=== PATIENT | male | born 1960 | race Two or more races ===

== ENCOUNTER 2024-12-16 19:37 | Inpatient (IN) | payer MEDICAID, SELFPAY ==
[2024-12-16 19:41] VITALS: BP 114/75; PULSE 104; RESP 20; TEMP 36.8; O2SAT 97
--- NOTE | 2024-12-16 20:18 | XR_ITS ---
Examination: AP chest single view Technique one AP portable semiupright chest single view Date and time: December 16, 2024, 2023 hours INDICATIONS: Shortness of breath chest pain today FINDINGS: Atelectasis versus early pneumonia right base Minor prominence left ventricle Left lung clear No pulmonary edema The osseous structures are intact IMPRESSION: Atelectasis versus early pneumonia right base, clinical correlation is advised
--- NOTE | 2024-12-16 20:24 | EDNOTE_ITS ---
ED General RME/HPI General Chief complaint: Abdominal Pain Stated complaint: ABD PAIN Time Seen by Provider: 12/16/24 20:12 Arrival date/time: 12/16/24 19:37 RME / HPI RME / HPI narrative: 63-year-old male patient with significant history of liver cirrhosis, stopped drinking alcohol a month ago, came in with EMS for evaluation regarding abdominal pain, discoloration pain and swelling to the left lower extremity. Onset of symptoms earlier this morning. Severity of symptoms moderate. Patient also noted rectal bleeding. Denies any other complaints. Patient is not taking any blood thinner. Related Data Allergies Allergy/AdvReac Type Severity Reaction Status Date / Time No Known Drug Allergies Allergy Verified 12/16/24 21:17 Review of Systems Review of Systems Narrative Review of Systems: Review of system reviewed and within normal limits except mentioned in HPI ED Exam Narrative Physical exam: VITAL SIGNS: Reviewed. GENERAL APPEARANCE: Alert and interactive, follows commands, no acute distress, HEAD AND FACE: Non-traumatic. ENT: PERRL, icteric conjunctiva, eyelid no trauma, Mucous membrane moist. NECK: Supple, nontender, no nuchal rigidity. CHEST: No tenderness, no crepitus, no paradoxical movement, no retractions. LUNGS: Clear, well ventilated, symmetric, no rales, no wheezing, no ronchi, no stridor, good breath sounds bilaterally. HEART: Regular rate, regular rhythm, no murmur, no gallops. ABDOMEN: Soft, positive bowel sounds, distended, no guarding, diffuse tenderness no rebound, no masses, RECTAL: Rectal exam showed melena. Tested positive for occult blood strongly. GENITAL: Deferred. NEUROLOGICAL: Gross motor function intact sensory function intact, Appropriate for age. MUSCULOSKELETAL: low back nontender, full range of motion. EXTREMITIES: +3 swelling bilateral lower extremity, +discoloration, bruising, tenderness, noted on the left lower entire extremity. Limited range of motion. Pulses barely palpable SKIN: Color jaundiced, dry, no rash, no lacerations, no abrasions, no contusions. LYMPHATICS: Deferred. Course Quality Measures none Orders Category Date Time Status CT Screening NOW Care 12/16/24 21:07 Active Body And Fender Mechanic Apprentice STAT Care 12/16/24 20:16 Active Central Line Insertion Set Up NOW Care 12/16/24 21:02 Active Continuous Pulse Oximetry STAT Care 12/16/24 20:16 Active EKG (ED ONLY) *Do not use* NOW Care 12/16/24 20:16 Completed In and Out Catheter X1PRN Care 12/16/24 20:16 Active Insert IV NOW Care 12/16/24 20:16 Active NPO STAT Care 12/16/24 20:16 Active Occult Blood,Stool (Nursing) ONCE Care 12/16/24 20:36 Active Strict Intake and Output Routine Care 12/16/24 20:16 Ordered Urinary Catheter QS Care 12/16/24 21:[address] LE LT wo con Stat Exams 12/16/24 21:[address] angio chest abdomen pelvis Stat Exams 12/16/24 21:06 Ordered EKG (ED Only) Stat Exams 12/16/24 20:16 Ordered XR chest 1V Stat Exams 12/16/24 20:18 Completed Arterial Blood Gas Stat Lab 12/16/24 21:03 Ordered B-Type Natriuretic Peptide Stat Lab 12/16/24 20:35 Completed Blood Culture (Lab) Stat Lab 12/16/24 20:49 Received CBC Stat Lab 12/16/24 20:35 Completed Comprehensive Metabolic Panel Stat Lab 12/16/24 20:35 Results DIC Panel Stat Lab 12/16/24 20:35 Completed LDH (Lactate Dehydrogenase) Stat Lab 12/16/24 20:35 Results Lactate (Lactic Acid) Q2H Lab 12/16/24 23:00 Ordered Lactate (Lactic Acid) Q2H Lab 12/17/24 01:00 Ordered Lactate (Lactic Acid) Q2H Lab 12/17/24 03:00 Ordered Lactate (Lactic Acid) Stat Lab 12/16/24 20:16 Results Lipase Stat Lab 12/16/24 20:35 Results Magnesium Stat Lab 12/16/24 20:35 Results PLATELETS [Pheresis Platelets] Stat Lab 12/16/24 20:48 Results Partial Thromboplastin Time Stat Lab 12/16/24 20:35 Completed Phosphorous Stat Lab 12/16/24 20:35 Results Procalcitonin Stat Lab 12/16/24 20:35 Results Prothrombin Time with INR Stat Lab 12/16/24 20:35 Completed Troponin I Stat Lab 12/16/24 20:35 Results Type and Screen Stat Lab 12/16/24 20:48 Results Urinalysis Stat Lab 12/16/24 20:16 Ordered Urine Culture Stat Lab 12/16/24 20:16 Ordered VBG [Venous Blood Gas] Stat Lab 12/16/24 20:36 Completed prbc [Red Blood Cells] Stat Lab 12/16/24 20:48 Results Octreotide Acet Inj [SandoSTATIN Inj] Med 12/16/24 20:34 Discontinued 50 mcg IV X1 ONE Pantoprazole Inj [Protonix Inj] Med 12/16/24 20:34 Discontinued 80 mg IVP X1 ONE Piper/Tazo 3.375 gm Premix [Zosyn] Med 12/16/24 20:35 Discontinued 3.375 gm in 50 ml IV X1 Ringers Lactated 1000 ml [Lactated Ringers] 1,000 ml Med 12/16/24 20:47 Discontinued IV 999 mls/hr Sodium Bicarb 8.4% SYR Med 12/16/24 22:22 Once 50 ml IV X1 ONE Sodium Bicarb 8.4% SYR Med 12/16/24 22:22 Once 50 ml IV X1 ONE Sodium Chloride 0.9% [Ns] 100 ml Med 12/16/24 20:35 Active Octreotide Acet Inj [SandoSTATIN Inj] 1,000 mcg IV 50 mcg/hr fentaNYL INJ [Sublimaze Inj] Med 12/16/24 21:10 Discontinued 50 mcg IVP X1 ONE BiPAP / CPAP NOW RT 12/16/24 21:10 Active Oxygen Delivery NOW RT 12/16/24 20:16 Active Vital Signs Vital signs: Vital Signs Temperature 98.2 F 12/16/24 19:41 Pulse Rate 104 H 12/16/24 19:41 Respiratory Rate 20 12/16/24 19:41 Blood Pressure 114/75 12/16/24 19:41 Pulse Oximetry (%) 97 12/16/24 19:41 Oxygen Delivery Method Room Air 12/16/24 19:41 Discharge Plan Plan Patient Disposition: Admit Acute Care w/in Hospital Discharge Disposition comment: Stable Problem List Clinical Impression: DIC (disseminated intravascular coagulation) Patient/Caregiver Discharge Instructions Discharge Activity: activity as tolerated Education Materials: Reducing Your Health Risks ... Additional Instructions: Thank you for the opportunity for serving you today. You are stable for discharged . Print Language: Georgian Stand Alone Forms: Lou Award Info., Patient Portal Info Letter MDM Narrative MDM hospital course: Care transferred to Dr Mccullough at 10pm for final disposition Medication Administration(s) Medication Administration History Octreotide Acetate 1,000 mcg/ (Sodium Chloride) 102 mls @ 5.1 mls/hr IV .Q20H ONE; Protocol Stop: 12/17/24 16:34 Last Admin: 12/16/24 22:01 Dose: 50 mcg/hr, 5.1 mls/hr Documented By: CG Sodium Bicarbonate (Sodium Bicarb Inj 8.4% Syr 50 Ml Syringe) 50 ml IV X1 ONE Stop: 12/16/24 22:23 Sodium Bicarbonate (Sodium Bicarb Inj 8.4% Syr 50 Ml Syringe) 50 ml IV X1 ONE Stop: 12/16/24 22:23 Discontinued Medications Fentanyl Citrate (Fentanyl Cit Inj 50 Mcg/Ml Amp 2ml) 50 mcg IVP X1 ONE Stop: 12/16/24 21:11 Last Admin: 12/16/24 21:45 Dose: 50 mcg Documented By: CG Piperacillin/Tazobactam/Dextrose (Zosyn) 3.375 gm in 50 mls @ 100 mls/hr IV X1 ONE Stop: 12/16/24 21:04 Last Admin: 12/16/24 21:56 Dose: 100 mls/hr Documented By: DIPIKA Lactated Ringer's (Lactated Ringers) 1,000 mls @ 999 mls/hr IV .Q1H1M ONE Stop: 12/16/24 21:47 Last Admin: 12/16/24 21:33 Dose: 999 mls/hr Documented By: DIPIKA Octreotide Acetate (Octreotide Acet Inj 50 Mcg/Ml Vial) 50 mcg IV X1 ONE Stop: 12/16/24 20:35 Last Admin: 12/16/24 21:53 Dose: 50 mcg Documented By: DIPIKA Pantoprazole Sodium (Pantoprazole Inj 40 Mg Vial) 80 mg IVP X1 ONE Stop: 12/16/24 20:35 Last Admin: 12/16/24 21:48 Dose: 80 mg Documented By: DIPIKA
[2024-12-16 20:37] VITALS: BP 116/68; PULSE 111; RESP 23; TEMP 36.6; O2SAT 97
[2024-12-16 20:56] VITALS: PULSE 114; RESP 23; O2SAT 99; BMI 30.1
[2024-12-16 20:57] LABS: Lactate (Lactic Acid) 10.9 mMol/L (0.4-2.0)
[2024-12-16 21:02] LABS: Basophils # (Auto) 0.0 Thou/mm3 (0.0-0.2); Basophils % (Auto) 0 % (0-2.5); Eosinophils # (Auto) 0.1 Thou/mm3 (0.0-0.5); Eosinophils % (Auto) 1 % (0-10); Hematocrit 30.6 % (41.0-53.0); Hemoglobin 10.7 g/dL (13.5-16.0); Immature Granulocytes Auto 0.01 Thou/mm3 (0.00-0.00); Lymphocytes # (Auto) 0.5 Thou/mm3 (1.0-4.8); Lymphocytes % (Auto) 10 % (10-50); Mean Corpuscular HGB Conc 35.0 g/dl (31.0-37.0); Mean Corpuscular Hemoglobin 38.2 pg (25.0-35.0); Mean Corpuscular Volume 109 fL (80-100); Monocytes # (Auto) 0.1 Thou/mm3 (0.0-0.8); Monocytes % (Auto) 2 % (0-12); Neutrophils # (Auto) 4.2 Thou/mm3 (1.8-7.7); Neutrophils % (Auto) 87 % (37-80); Nucleated Red Blood Cell # 0.02 Thou/mm3 (0.00-0.00); Nucleated Red Blood Cell % 0 /100 WBC (0); RDW Standard Deviation 60.7 fL (35.1-43.9); Red Blood Count 2.80 Miln/mm3 (4.50-5.90); White Blood Count 4.8 Thou/mm3 (3.8-10.6)
--- NOTE | 2024-12-16 21:06 | XR_ITS ---
Examination: CTA chest, with intravenous contrast. CTA abdomen, with intravenous contrast. CTA pelvis, with intravenous contrast. 2-D sagittal and coronal reconstructions. 3-D reconstructions. Date and time of exam: December 17, 2024, 0114 hours Sepsis alert with chest and abdominal pain today CTDI vol (mgy) 26.68 DLP (MGycm) 1407 Technique: Multiple CTA images, 2.0 mm slice thickness, obtained chest, abdomen, pelvis, with the high-resolution 64 slice scanner. 60 cc Isovue 300 is administered intravenously. Sagittal and coronal 2-D reconstructions are obtained. 3-D reconstructions, angiographic images are obtained. 3-D postprocessing, including vascular maximum intensity projections. Low dose protocols were performed. One or more of the following dose reduction techniques were used; automated exposure control, adjustment of the mA and/or KV according to patient size, use of iterative reconstruction technique. Findings: Tracheal tube tip 2.6 cm above Delmy No thoracic aortic aneurysmal dilatation or dissection. No pulmonary artery filling defects Mild to moderate enlargement left atrium and left ventricle Prominent vascular congestion Bibasilar pneumonia significant right base Cirrhosis, liver and nodular in contour with prominent ascites Gallstones, gallbladder wall appears thickened No pancreatic or adrenal mass Anasarca Aorta normal size No bowel obstruction The appendix is not diagnostically visualized Urinary Merlos catheter present in the bladder, air density in the bladder Fluid in the inguinal canals/inguinal hernias Acute fracture T11 vertebral body, depression superior endplate 20% Adequate alignment of this vertebral body IMPRESSION: Mild heart failure A bibasilar pneumonia. Cirrhosis Prominent ascites Anasarca. Recommend hepatobiliary sonography follow-up Acute fracture T11 vertebral body as above
--- NOTE | 2024-12-16 21:06 | XR_ITS ---
Examination: CT left lower extremity, without contrast. 2-D sagittal reconstructions. 2-D coronal reconstructions. 3-D reconstructions. Date and time of exam:December 17, 2024 0054 hours INDICATIONS: Redness swelling and ecchymoses in the left lower extremity today CTDI: vol (mGy):16.09 DLP: (mGycm):1844 Technique: Multiple 1.25 mm axial sections of the left lower extremity without intravenous contrast. have been obtained. 2-D sagittal and coronal reconstructions have been obtained. 3-D reconstructions have been obtained. Low dose protocols were performed. One or more of the following dose reduction techniques were used; automated exposure control, adjustment of the mA and/or KV according to patient size, use of iterative reconstruction technique. Findings: Significant ascites Urinary Merlos catheter with air in the urinary bladder, fluid in bilateral inguinal hernias Prominent edema in the subcutaneous tissues surrounding the entire lower extremity. AV calcification involving the superficial femoral popliteal and trifurcation vessel arteries Negative for osteomyelitis No soft tissue abscess IMPRESSION: Prominent subcutaneous edema/anasarca Negative for osteomyelitis No soft tissue abscess Consider venous Doppler sonography follow-up
[2024-12-16 21:07] LABS: Platelet Count 61 Thou/mm3 (140-440)
--- NOTE | 2024-12-16 21:10 | EDNOTE_ITS ---
Emergency Room Addendum <Poonam Adams - Last Filed: 12/17/24 05:23> Addendum Narrative: 2100: Care assumed from Kitty Espino NP. Past medical, surgical, social and family history reviewed. Vitals and home medications reviewed. Results and treatment plan discussed. I will assume the care of the patient at this time and will follow the patient. Please refer to the emergency department record for history and examination from initial visit. The following addendum documentation note is intended to reflect any pending information, findings, or radiology results not included in the patient?s initial chart. 2099: Sepsis alert initiated. Orders made at this time are congruent with ED Adult Sepsis Order List. Re-evaluation is to be completed. 2109: BiPAP ordered. RT notified. 2132: LR IVF started. WBC normal, Hgb 10.7, Hct 30.6, PT 31.4, INR 3.1, PTT 65.6, Fibrinogen 71, D-Dimer 2980, Sodium 123, CO2 11.3, Creatinine 1.5, Glucose 59, Lactic Acid 10.9, Total Bilirubin 9.2, Troponin normal, BNP 277, Procalcitonin 17.29. VBG shows pH 7.27, pCO2 28. 2345: Sepsis reassessment performed consisting of lab review, vitals, physical exam including auscultation of heart, lungs, and visual evaluation of capillary refills, mucosal membranes and extremities. Central line placed by the resident physician, Dr. Torres, PGY-2, under my supervision. See procedure note. 0033: Patient intubated, see procedure note below. Post intubation CXR shows ET tube in good placement, right middle and upper lobe pneumonia, no pleural effusion, according to my interpretation. 0248: Discussed case with Dr. Mcclain, ICU resident from Hospitalist service regarding admission. Discussed patients ED course, exam findings, labs, and radiology results. The Hospitalist agrees to accept the patient for admission. Request FFP's. 0427: Discussed case with Dr. Hawthorne from general surgery regarding consultation. Discussed patients ED course, exam findings, labs, and radiology results. Agrees to consult. Diagnoses: upper GI bleed, thrombocytopenia, sepsis, hypercoaguable, DIC, hyponatremia, acute respiratory distress, right lower lobe pneumonia RADIOLOGY RESULTS: [facility] Report Signed Patient: BERE BLACKWELL Xiaoying. Record#: [id number] Birthdate: 1960 Age/Sex: 64 / M Location: [facility] Attending Dr: Ordering Physician: Kitty Espino Date of Service: 12/16/24 Procedure(s): XR chest 1V Accession Number(s): [id number] cc: Kitty Espino; Denny Grewal MD~ Examination: AP chest single view Technique one AP portable semiupright chest single view Date and time: December 16, 20242023 hours INDICATIONS: Shortness of breath chest pain today FINDINGS: Atelectasis versus early pneumonia right base Minor prominence left ventricle Left lung clear No pulmonary edema The osseous structures are intact IMPRESSION: Atelectasis versus early pneumonia right base, clinical correlation is advised Dictated By: Denny Grewal MD Signed By: <Electronically signed by Denny Grewal MD in OV> 12/16/242105 [facility] Preliminary Report Draft Patient: BERE BLACKWELL Xiaoying. Record#: [id number] Birthdate: 1960 Age/Sex: 64 / M Location: [facility] Attending Dr: Ordering Physician: Date of Service: Procedure(s): Accession Number(s): cc: ~ CT scan of the left lower extremity (hip, femur, knee, tibia and fibula, ankle, and foot) without intravenous contrast (axial sections with sagittal and coronal reformats) December 17, 2024 0054 hours Clinical History: Swelling ecchymosis Comparison: None. Findings: The visualized bones are unremarkable. No fracture or dislocation is noted. No joint effusion is noted. The visualized muscles are unremarkable with maintained intermuscular fat planes. Diffuse subcutaneous fat edema. No collections. Vascular calcifications. Merlos catheter noted in place. Air within the urinary bladder. No hematomas. Impression: 1. No acute fractures. 2. Diffuse subcutaneous fat edema, consider anasarca and cellulitis in the differential diagnosis. 3. Air within the urinary bladder, possibly postprocedural or possibly due to cystitis. Please, correlate clinically. Report Electronically Signed By: Dl Clemente 12/17/2024 2:13:06 AM [facility] Preliminary Report Draft Patient: BERE BLACKWELL. Record#: [id number] Birthdate: 1960 Age/Sex: 64 / M Location: [facility] Attending Dr: Ordering Physician: Date of Service: Procedure(s): Accession Number(s): cc: ~ CT angiogram of the chest, abdomen and pelvis with intravenous contrast (axial sections with sagittal and coronal reformats) December 17, 2024 0114 hours Clinical History: Sepsis Protocol Comparison: None. Findings: The thoracic aorta demonstrates mild atheromatous calcification without evidence of dissection or aneurysm. The origins of the right brachiocephalic, left common carotid and left subclavian arteries are patent. The abdominal aorta demonstrates mild atheromatous calcification without evidence of dissection or aneurysm. The celiac, superior mesenteric, inferior mesenteric and bilateral renal arteries are patent to the extent visualized. The common iliac, external iliac and internal iliac arteries are patent bilaterally. There is no filling defect within the pulmonary artery divisions to suggest pulmonary thromboembolism. No evidence of mediastinal mass or lymphadenopathy. There is no pericardial effusion. Consolidations in the bilateral lower lobes. No pneumothorax. Small bilateral pleural effusions. Bilateral upper lobe consolidations. Irregular liver margins. Moderate ascites. The spleen, pancreas, adrenals and kidneys are unremarkable. Gallbladder wall thickening. Gallstones. No biliary duct dilation No evidence of bowel obstruction. No evidence of appendicitis. There is no significant mesenteric or retroperitoneal adenopathy. The urinary bladder is unremarkable. There is no free air or abscess. Acute compression fracture of the superior endplate of T11 without evidence of bone fragment retropulsion, about 10% decrease in vertebral height. Esophagogastric tube in place. Endotracheal tube in place. Dilated left atrium. Gastroesophageal varices. The portal vein is patent. Diverticulosis of the colon. Thickening of the sigmoid colon wall. Impression: 1. No evidence of aortic dissection or aneurysm. 2. No evidence of pulmonary thromboembolism. 3. Acute compression fracture of the superior endplate of T11 without evidence of bone fragment retropulsion, about 10% decrease in vertebral height. Correlation with CT of the thoracolumbar spine is recommended. 4. Dilated left atrium. 5. Multifocal pneumonia. 6. Small bilateral pleural effusions. 7. Cirrhosis associated with ascites. 8. Gallstones and gallbladder wall thickening, possibly due to chronic or possibly due to diuresis chronic liver disease. 9. Possible sigmoiditis. Discussion Details: Results verbally communicated to : Dr Mccullough at 02:32 AM 12/17/2024 Report Electronically Signed By: Dl Clemente 12/17/2024 2:40:17 AM PROCEDURES: Intubation Time out performed: Yes sedative: Etomidate Mg Given: 20 paralytic: Succinylcholine Mg Given: 150 Laryngoscope: fiber optic video scope Assist Device Used: fiber optic device ET Tube Size: 7.5 ET Tube Uncuffed: No Tube Secured Depth (cm): 24 Tube Secured Location: teeth Tube Placement Confirmation: visualized tube passing through cords, equal breath sounds bilaterally, no breath sounds over epigastrium and confirmation by capnometry Intubation Complications: difficult intubation Central Line Placement Right Femoral: Time Out Performed: Yes Patient Placed on Monitor/Pulse Ox: Yes (patient intubated) Hand Hygiene: soap & water Max Sterile Barrier Techniques used: cap, mask, sterile gown, sterile gloves and sterile full body drape Central Line Prep: Povidone-Iodine, sterile drapes applied Ultrasound Used for Placement: Yes Sterile Technique if Ultrasound used, including sterile gel: yes Central Line Lumen Inserted: triple Post Procedure: sutured in place, good blood return, all ports aspirated, flushed, capped and sterile dressing applied Patient Tolerated Procedure: well and no complications Critical Care Time: 80 minutes The high probability of sudden, clinically significant deterioration in the patient?s condition required the highest level of my preparedness to intervene urgently. The services I provided to this patient were to treat and/or prevent clinically significant deterioration. Services included the following: chart data review, reviewing nursing notes and/or old charts, documentation time, product support consultant collaboration regarding findings and treatment options, medication orders and management, direct patient care, vital sign assessments and ordering, interpreting and reviewing diagnostic studies and lab tests. Aggregate critical care time includes only time during which I was engaged in work directly related to the patient?s care, as described above, whether at bedside or elsewhere in the Emergency Department. It did not include time spent performing other reported procedures or the services of residents, students, nurses or physician assistants. <Liz Mccullough MD - Last Filed: 12/17/24 02:58> Addendum Narrative: 2099: Care assumed from Kitty Espino NP. Past medical, surgical, social and family history reviewed. Vitals and home medications reviewed. Results and treatment plan discussed. I will assume the care of the patient at this time and will follow the patient. Please refer to the emergency department record for history and examination from initial visit. The following addendum documentation note is intended to reflect any pending information, findings, or radiology results not included in the patient?s initial chart. 2099: Sepsis alert initiated. Orders made at this time are congruent with ED Adult Sepsis Order List. Re-evaluation is to be completed. 2109: BiPAP ordered. RT notified. 2132: LR IVF started. WBC normal, Hgb 10.7, Hct 30.6, PT 31.4, INR 3.1, PTT 65.6, Fibrinogen 71, D- Dimer 2980, Sodium 123, CO2 11.3, Creatinine 1.5, Glucose 59, Lactic Acid 10.9, Total Bilirubin 9.2, Troponin normal, BNP 277, Procalcitonin 17.29. VBG shows pH 7.27, pCO2 28. 2345: Sepsis reassessment performed consisting of lab review, vitals, physical exam including auscultation of heart, lungs, and visual evaluation of capillary refills, mucosal membranes and extremities. Central line placed by the resident physician, Dr. Torres, PGY-2, under my supervision. See procedure note. 0033: Patient intubated, see procedure note below. Post intubation CXR shows ET tube in good placement, right middle and upper lobe pneumonia, no pleural effusion, according to my interpretation. 0248: Discussed case with [the resident physician, attending ] from Hospitalist service regarding admission. Discussed patients ED course, exam findings, labs, and radiology results. The Hospitalist [agrees] to accept the patient for admission. Request FFP's. Diagnoses: upper GI bleed, thrombocytopenia, sepsis, hypercoaguable, DIC, hyponatremia, acute respiratory distress, right lower lobe pneumonia RADIOLOGY RESULTS: [facility] Report Signed Patient: BERE BLACKWELL. Record#: [id number] Birthdate: 1960 Age/Sex: 64 / M Location: [facility] Attending Dr: Ordering Physician: Kitty Espino Date of Service: 12/16/24 Procedure(s): XR chest 1V Accession Number(s): [id number] cc: Kitty Espino; Denny Grewal MD~ Examination: AP chest single view Technique one AP portable semiupright chest single view Date and time: December 16, 20242023 hours INDICATIONS: Shortness of breath chest pain today FINDINGS: Atelectasis versus early pneumonia right base Minor prominence left ventricle Left lung clear No pulmonary edema The osseous structures are intact IMPRESSION: Atelectasis versus early pneumonia right base, clinical correlation is advised Dictated By: Denny Grewal MD Signed By: <Electronically signed by Denny Grewal MD in OV> 12/16/242105 [facility] Preliminary Report Draft Patient: BERE BLACKWELL. Record#: [id number] Birthdate: 1960 Age/Sex: 64 / M Location: [facility] Attending Dr: Ordering Physician: Date of Service: Procedure(s): Accession Number(s): cc: ~ CT scan of the left lower extremity (hip, femur, knee, tibia and fibula, ankle, and foot) without intravenous contrast (axial sections with sagittal and coronal reformats) December 17, 2024 0054 hours Clinical History: Swelling ecchymosis Comparison: None. Findings: The visualized bones are unremarkable. No fracture or dislocation is noted. No joint effusion is noted. The visualized muscles are unremarkable with maintained intermuscular fat planes. Diffuse subcutaneous fat edema. No collections. Vascular calcifications. Merlos catheter noted in place. Air within the urinary bladder. No hematomas. Impression: 1. No acute fractures. 2. Diffuse subcutaneous fat edema, consider anasarca and cellulitis in the differential diagnosis. 3. Air within the urinary bladder, possibly postprocedural or possibly due to cystitis. Please, correlate clinically. Report Electronically Signed By: Dl Clemente 12/17/2024 2:13:06 AM [facility] Preliminary Report Draft Patient: BERE BLACKWELL Record#: [id number] Birthdate: 1960 Age/Sex: 64 / M Location: [facility] Attending Dr: Ordering Physician: Date of Service: Procedure(s): Accession Number(s): cc: ~ CT angiogram of the chest, abdomen and pelvis with intravenous contrast (axial sections with sagittal and coronal reformats) December 17, 2024 0114 hours Clinical History: Sepsis Protocol Comparison: None. Findings: The thoracic aorta demonstrates mild atheromatous calcification without evidence of dissection or aneurysm. The origins of the right brachiocephalic, left common carotid and left subclavian arteries are patent. The abdominal aorta demonstrates mild atheromatous calcification without evide nce of dissection or aneurysm. The celiac, superior mesenteric, inferior mesenteric and bilateral renal arteries are patent to the extent visualized. The common iliac, external iliac and internal iliac arteries are patent bilaterally. There is no filling defect within the pulmonary artery divisions to suggest pulmonary thromboembolism. No evidence of mediastinal mass or lymphadenopathy. There is no pericardial effusion. Consolidations in the bilateral lower lobes. No pneumothorax. Small bilateral pleural effusions. Bilateral upper lobe consolidations. Irregular liver margins. Moderate ascites. The spleen, pancreas, adrenals and kidneys are unremarkable. Gallbladder wall thickening. Gallstones. No biliary duct dilation No evidence of bowel obstruction. No evidence of appendicitis. There is no significant mesenteric or retroperitoneal adenopathy. The urinary bladder is unremarkable. There is no free air or abscess. Acute compression fracture of the superior endplate of T11 without evidence of bone fragment retropulsion, about 10% decrease in vertebral height. Esophagogastric tube in place. Endotracheal tube in place. Dilated left atrium. Gastroesophageal varices. The portal vein is patent. Diverticulosis of the colon. Thickening of the sigmoid colon wall. Impression: 1. No evidence of aortic dissection or aneurysm. 2. No evidence of pulmonary thromboembolism. 3. Acute compression fracture of the superior endplate of T11 without evidence of bone fragment retropulsion, about 10% decrease in vertebral height. Correlation with CT of the thoracolumbar spine is recommended. 4. Dilated left atrium. 5. Multifocal pneumonia. 6. Small bilateral pleural effusions. 7. Cirrhosis associated with ascites. 8. Gallstones and gallbladder wall thickening, possibly due to chronic or poss ibly due to diuresis chronic liver disease. 9. Possible sigmoiditis. Discussion Details: Results verbally communicated to : Dr Mccullough at 02:32 AM 12/17/2024 Report Electronically Signed By: Dl Clemente 12/17/2024 2:40:17 AM PROCEDURES: Intubation Time out performed: Yes sedative: Etomidate Mg Given: 20 paralytic: Succinylcholine Mg Given: 150 Laryngoscope: fiber optic video scope Assist Device Used: fiber optic device ET Tube Size: 7.5 ET Tube Uncuffed: No Tube Secured Depth (cm): 24 Tube Secured Location: teeth Tube Placement Confirmation: visualized tube passing through cords, equal breath sounds bilaterally, no breath sounds over epigastrium and confirmation by capnometry Intubation Complications: difficult intubation
[2024-12-16 21:12] LABS: D-Dimer 2980 ng/mL (<600)
[2024-12-16 21:21] VITALS: PULSE 114; RESP 12; RESP 25; O2SAT 99
[2024-12-16 21:24] LABS: Base Excess, Venous -13 (-3-3); O2 Saturation, Venous 54 % (96-97); PCO2, Venous 28 mmHg (36-56); PO2, Venous 36 mmHg (15-58); pH, Venous 7.27 (7.33-7.66)
[2024-12-16] MEDS: RINGERS LACTATED 1000 ML 1,000 ML 999 ML IV (21:33)
[2024-12-16 21:34] LABS: INR 3.1 (0.9-1.3); Partial Thromboplastin Time 65.6 Seconds (22.0-36.0)
[2024-12-16] MEDS: fentaNYL CIT INJ 50 mCg/ML AMP 2ML IVP (21:45)
[2024-12-16 21:50] LABS: Fibrinogen 71 mg/dL (175-375)
[2024-12-16] MEDS: OCTREOTIDE ACET INJ 50 mCg/ML VIAL IV (21:53)
[2024-12-16 21:54] LABS: B-Type Natriuretic Peptide 277 pg/mL (0-100)
[2024-12-16 21:55] LABS: Prothrombin Time 31.4 Seconds (9.0-12.2)
[2024-12-16] MEDS: PIPER/TAZO 3.375 GM PREMIX 3.375 GM/50 ML BAG IV (21:56)
[2024-12-16] MEDS: OCTREOTIDE ACET INJ 1,000 MCG in SODIUM CHLORIDE 0.9% 100 ML 5.1 MCG IV (22:01)
[2024-12-16 22:02] LABS: Slide Review Platelets confirmed
[2024-12-16 22:13] LABS: Alanine Aminotransferase 60 U/L (10-49); Albumin, Serum 1.8 gm/dL (3.4-4.8); Albumin/Globulin Ratio 0.4 (1.2-2.2); Alkaline Phosphatase 115 U/L (46-116); Anion Gap 19 (7-16); Aspartate Amino Transferase 82 U/L (0-34); BUN/Creatinine Ratio 12 Ratio (12-20); Bilirubin,Total 9.2 mg/dL (0.3-1.2); Blood Urea Nitrogen 18 mg/dL (9-23); Calcium 8.2 mg/dL (8.3-10.6); Calcium (Corrected) 10.0 mg/dL (8.5-10.1); Chloride 93 mMol/L (98-107); Creatinine (Component) 1.5 mg/dL (0.6-1.3); Estimated Creatinine Clearance 54.2 mL/min (>60); Globulin 4.3 gm/dL (2.3-3.5); Glucose 59 mg/dL (74-106); Magnesium 1.6 mg/dL (1.6-2.6); Osmolality,Calculated 247 (275-295); Phosphorous 3.8 mg/dL (2.4-5.1); Potassium 3.8 mMol/L (3.4-5.1); Procalcitonin 17.29 ng/ml (0.0-0.49); Sodium 123 mMol/L (136-145); Total Protein 6.1 gm/dL (5.7-8.2); Troponin I < 0.020 ng/mL (0.0-0.045); eGFR 52 See Note
[2024-12-16 22:16] LABS: Carbon Dioxide 11.3 mMol/L (20.0-31.0)
[2024-12-16] MEDS: Sodium Bicarb Inj 8.4% SYR 50 ML SYRINGE IV ×2 (23:12→23:13)
[2024-12-16 23:13] VITALS: BP 116/69; PULSE 108
[2024-12-16] MEDS: BUMETANIDE INJ 0.25 MG/ML VIAL 4 ML 2 MG IVP (23:13)
[2024-12-16 23:41] LABS: LDH (Lactate Dehydrogenase) 303 U/L (120-246); Lipase 18 U/L (12-53)
[2024-12-16 23:54] LABS: Reflex Lactate? Y
--- NOTE | 2024-12-16 23:55 | XR_ITS ---
Examination: AP chest single view TECHNIQUE: AP portable semiupright chest single view Date and time: December 18, 2024 11:55 AM INDICATIONS: Post central line placement Findings while Left internal jugular central line tip is directed cephalad in the right internal jugular vein Mild prominence of ventricle Moderate vascular congestion No pneumothorax IMPRESSION: Left internal jugular central line tip is directed cephalad in the right internal jugular vein
[2024-12-17] VITALS (150 sets, daily range): BP systolic 66–300; BP diastolic 25–120; PULSE 86–126; RESP 12–120; TEMP 34.4–37.1; O2SAT 87–100; BMI 31.1
[2024-12-17] MEDS: TRANEXAMIC ACID INJ 1,000 MG/10 ML VIAL 1000 MG IV (00:20)
--- NOTE | 2024-12-17 00:33 | PC.NURSE ---
Pt intubated at this time with a 7.5 tube at 24 @teeth
[2024-12-17] MEDS: PROPOFOL 1,000 MG IVPB 1,000 MG/100 ML VIAL 2.697 MG IV (01:27)
[2024-12-17] MEDS: fentaNYL CIT INJ 50 mCg/ML AMP 2ML IVP (01:44)
--- NOTE | 2024-12-17 01:57 | XR_ITS ---
Examination: AP chest single view TECHNIQUE: AP portable semiupright chest single view Date and time: December 17, 2024, 0203 hours Comparison December 16, 2024 INDICATIONS: Hypoxic respiratory failure postintubation FINDINGS: Endotracheal tube tip 5 cm above Delmy Orogastric tube in the stomach although the stomach is air distended Interval diffuse left lung pneumonic consolidation Mild right base pneumonia Minor prominence left ventricle Prominent osteopenia IMPRESSION: Interval diffuse left lung pneumonia, consider aspiration pneumonia
[2024-12-17 02:05] LABS: Collection Type, Urine Clean Catch
[2024-12-17 02:09] LABS: Lactate (Lactic Acid) 12.7 mMol/L (0.4-2.0)
--- NOTE | 2024-12-17 02:13 | PRELIM_ITS ---
PRELIM ADDENDUM I have been asked to address few questions by the referring physician: As discussed in the report, air is within the urinary bladder, in emphysematous cystitis the air needs to be within the urinary bladder wall which is not in this case. As discussed in the report, there is diffuse subcutaneous fat edema, there is no air within the soft tissues (no soft tissue emphysema), there is no CT evidence of necrotizing fasciitis. Correlate clinically, since the absence of soft tissue emphysema by CT does not exclude 100% the possibility of necrotizing fasciitis. Report Electronically Signed By: Dl Clemente 12/17/2024 4:32:52 AM [EST] ORIGINAL PRELIM REPORT: CT scan of the left lower extremity (hip, femur, knee, tibia and fibula, ankle, and foot) without intravenous contrast (axial sections with sagittal and coronal reformats) December 17, 2024 0054 hours Clinical History: Swelling ecchymosis Comparison: None. Findings: The visualized bones are unremarkable. No fracture or dislocation is noted. No joint effusion is noted. The visualized muscles are unremarkable with maintained intermuscular fat planes. Diffuse subcutaneous fat edema. No collections. Vascular calcifications. Merlos catheter noted in place. Air within the urinary bladder. No hematomas. Impression: 1. No acute fractures. 2. Diffuse subcutaneous fat edema, consider anasarca and cellulitis in the differential diagnosis. 3. Air within the urinary bladder, possibly postprocedural or possibly due to cystitis. Please, correlate clinically. Report Electronically Signed By: Dl Clemente 12/17/2024 2:13:06 AM [EST]
[2024-12-17 02:22] LABS: Bilirubin,Urine 1+ (Negative); Blood,Urine 3+ (Negative); Color,Urine Drk-Yellow (Lt Yel-Yel); Glucose, Urine Negative (Negative); Ketones,Urine Negative (Negative); Leukocyte Esterase,Urine Negative (Negative); Nitrite,Urine Negative (Negative); PH,Urine 6.0 (5.0-7.0); Protein,Urine 1+ (Neg - Trace); RBC,Urine 190 /hpf (0-3); Renal Epithelial Cells,Urine 12 /hpf (0-5); Specific Gravity,Urine 1.023 (1.001-1.035); Squamous Epithelial Cell,Urine < 1 /hpf (0-5); Urobilinogen,Urine 3.0 mg/dL (0.0-1.0); WBC,Urine 6 /hpf (0-5)
[2024-12-17 02:25] LABS: Clarity,Urine Turbid (Clear/Hazy)
--- NOTE | 2024-12-17 02:40 | PRELIM_ITS ---
CT angiogram of the chest, abdomen and pelvis with intravenous contrast (axial sections with sagittal and coronal reformats) December 17, 2024 0114 hours Clinical History: Sepsis Protocol Comparison: None. Findings: The thoracic aorta demonstrates mild atheromatous calcification without evidence of dissection or aneurysm. The origins of the right brachiocephalic, left common carotid and left subclavian arteries are patent. The abdominal aorta demonstrates mild atheromatous calcification without evidence of dissection or aneurysm. The celiac, superior mesenteric, inferior mesenteric and bilateral renal arteries are patent to the extent visualized. The common iliac, external iliac and internal iliac arteries are patent bilaterally. There is no filling defect within the pulmonary artery divisions to suggest pulmonary thromboembolism. No evidence of mediastinal mass or lymphadenopathy. There is no pericardial effusion. Consolidations in the bilateral lower lobes. No pneumothorax. Small bilateral pleural effusions. Bilateral upper lobe consolidations. Irregular liver margins. Moderate ascites. The spleen, pancreas, adrenals and kidneys are unremarkable. Gallbladder wall thickening. Gallstones. No biliary duct dilation No evidence of bowel obstruction. No evidence of appendicitis. There is no significant mesenteric or retroperitoneal adenopathy. The urinary bladder is unremarkable. There is no free air or abscess. Acute compression fracture of the superior endplate of T11 without evidence of bone fragment retropulsion, about 10% decrease in vertebral height. Esophagogastric tube in place. Endotracheal tube in place. Dilated left atrium. Gastroesophageal varices. The portal vein is patent. Diverticulosis of the colon. Thickening of the sigmoid colon wall. Impression: 1. No evidence of aortic dissection or aneurysm. 2. No evidence of pulmonary thromboembolism. 3. Acute compression fracture of the superior endplate of T11 without evidence of bone fragment retropulsion, about 10% decrease in vertebral height. Correlation with CT of the thoracolumbar spine is recommended. 4. Dilated left atrium. 5. Multifocal pneumonia. 6. Small bilateral pleural effusions. 7. Cirrhosis associated with ascites. 8. Gallstones and gallbladder wall thickening, possibly due to chronic or possibly due to diuresis chronic liver disease. 9. Possible sigmoiditis. Discussion Details: Results verbally communicated to : Dr Mccullough at 02:32 AM 12/17/2024 Report Electronically Signed By: Dl Clemente 12/17/2024 2:40:17 AM [EST]
[2024-12-17] MEDS: fentaNYL 2,500 MCG/250 ML BAG 2,500 MCG/250 ML BAG IV (02:52)
[2024-12-17] MEDS: SUCCINYLCHOLINE INJ 20 MG/ML VIAL 10 ML 150 MG IV (03:28)
[2024-12-17] MEDS: ETOMIDATE INJ 2 MG/ML VIAL 10 ML 20 MG IVP (03:28)
[2024-12-17 04:00] LABS: Base Excess, Venous -17 (-3-3); O2 Saturation, Venous 69 % (96-97); PCO2, Venous 35 mmHg (36-56); PO2, Venous 46 mmHg (15-58); pH, Venous 7.12 (7.33-7.66)
[2024-12-17 04:01] LABS: Lactate (Lactic Acid) 11.0 mMol/L (0.4-2.0)
[2024-12-17 04:05] LABS: Basophils # (Auto) 0.0 Thou/mm3 (0.0-0.2); Basophils % (Auto) 0 % (0-2.5); Eosinophils # (Auto) 0.1 Thou/mm3 (0.0-0.5); Eosinophils % (Auto) 3 % (0-10); Hematocrit 27.3 % (41.0-53.0); Hemoglobin 9.8 g/dL (13.5-16.0); Immature Granulocytes Auto 0.02 Thou/mm3 (0.00-0.00); Lymphocytes # (Auto) 0.4 Thou/mm3 (1.0-4.8); Lymphocytes % (Auto) 15 % (10-50); Mean Corpuscular HGB Conc 35.9 g/dl (31.0-37.0); Mean Corpuscular Hemoglobin 41.5 pg (25.0-35.0); Mean Corpuscular Volume 116 fL (80-100); Monocytes # (Auto) 0.1 Thou/mm3 (0.0-0.8); Monocytes % (Auto) 3 % (0-12); Neutrophils # (Auto) 1.9 Thou/mm3 (1.8-7.7); Neutrophils % (Auto) 78 % (37-80); Nucleated Red Blood Cell # 0.04 Thou/mm3 (0.00-0.00); Nucleated Red Blood Cell % 2 /100 WBC (0); RDW Standard Deviation 61.9 fL (35.1-43.9); Red Blood Count 2.36 Miln/mm3 (4.50-5.90)
[2024-12-17 04:14] LABS: Platelet Count 43 Thou/mm3 (140-440)
[2024-12-17 04:16] LABS: White Blood Count 2.4 Thou/mm3 (3.8-10.6)
[2024-12-17 04:17] LABS: Path Review Blood Smear Sent to Pathologist; Slide Review Platelets confirmed
[2024-12-17] MEDS: Norepinephrine/D5W 8mg/250ml 8 MG/250 ML BAG 8.428 MG IV (04:17)
[2024-12-17] MEDS: DEXTROSE 50%-WATER INJ 50 ML SYRINGE IVP ×5 (04:43→21:02)
--- NOTE | 2024-12-17 04:55 | ESHP_ITS ---
Documentation for date of: 12/17/24 [facility] History of Present Illness Chief complaint: Abdominal pain and left lower ext pain and swelling History of present illness: This patient is a 64-year-old male with past medical history of decompensated liver cirrhosis, alcohol use disorder presented to the ED on 12/16/2024 with chief complaint of abdominal pain and left lower extremity swelling and pain. He also reported to have rectal bleeding. He was extremely short of breath was placed on BiPAP and endorsed left lower extremity pain and swelling. Patient's family relative were present at bedside and sister was not at the time of history taking and she reported that patient was having abdominal pain, shortness of breath, left lower extremity swelling and pain from last couple of days. He was getting treatment for liver cirrhosis at [place] and was also given medications. Family relative reported that patient was admitted in [facility] (Former[facility]) in October for 2 to 3 days. Limited history available. Point of contact his sister who is decision-maker Jonas Benitez at [phone] Daughter Chris is in [place] at [phone] ED course: In the ED, patient was hypotensive with blood pressure 114/75, heart rate 84, respiratory rate 20, afebrile and saturating well on room air. Central line left IJ was initially tried however left IJ line went to right IJ therefore line was removed and profuse bleeding was seen. Patient had a emesis with blood therefore patient was intubated and started on mechanical ventilation. Nosebleeding was also seen. CBC showed white count 2.4, hemoglobin 9.8, MCV 116, platelet count 43. PT 31.4, fibrinogen 71, D-dimer 2980. VBG showed pH 7.12, PCO2 35, PO2 46. Chemistry panel is pending. Recent BUN was 18 and creatinine 1.5. LDH 203. Troponin I was negative. CRP 3.3. BNP 277. Procalcitonin 17.29. Patient had a complicated course in the ER had failed left IJ catheter placement leading to profuse bleeding, nosebleed, emesis with blood and was eventually intubated with mechanical ventilation. Patient's blood pressure has been consistently dropping along with blood sugars initially were undetectable and also dropping. Patient was started on Levophed, vasopressin, bicarb, 4 ampoules of D50 were given, Zosyn, octreotide, Protonix, fluids. Chest x-ray showed atelectasis with early pneumonia right base. CT left lower extremity showed Diffuse subcutaneous fat edema, consider anasarca and cellulitis in the differential diagnosis.Air within the urinary bladder, possibly postprocedural or possibly due to cystitis. Emphysematous cystitis was ruled out. CT angio chest abdomen pelvis showed Acute compression fracture of the superior endplate of T11 without evidence of bone fragment retropulsion, about 10% decrease in vertebral height. Correlation with CT of the thoracolumbar spine is recommended.Dilated left atrium.Multifocal pneumonia.Small bilateral pleural effusions.Cirrhosis associated with ascites.Gallstones and gallbladder wall thickening, possibly due to chronic or possibly due to diuresis chronic liver disease.Possible sigmoiditis. Per chart review colonoscopy showed hemorrhoids with moderate diverticulosis. EGD showed grade 3 esophageal varices which were banded on October 16, 2024. PMH: As above PSH: Unknown Allergies: No known drug allergies per patient's family SH: Used to drink alcohol moderately. Home medications:Ciprofloxacin 500 mg every 12, ferrous sulfate iron, folic acid 1 mg, Lasix 40 p.o. daily, loratadine 10 mg Q12, Protonix 40 mg, spironolactone 100 mg, thiamine 100 mg Patient is admitted for distributive shock related to distributive shock due to left lower extremity cellulitis, pneumonia, SBP and,GI bleed due to dec liver cirhosis, lactic acidosis, Met acidoisis with elevated anion gap. Review of Systems Review of Systems ROS Unobtainable: unobtainable due to mental status and due to endotracheal tube Exam Vital Signs Temp Pulse Resp BP Pulse Ox O2 Del Method O2 Flow Rate 98 F 103 H 25 H 74/48 L 100 Nasal Cannula 2 12/16/24 20:37 12/17/24 04:17 12/16/24 21:21 12/17/24 04:17 12/17/24 03:35 12/16/24 20:37 12/16/24 20:37 FiO2 85 12/17/24 03:35 Narrative Exam GENERAL APPEARANCE: Patient is intubated and mechanically ventilated. HEENT: NC, AT. MMM. EOMI, clear conjunctiva, oropharynx clear. NECK: Supple without lymphadenopathy. No stiffness or restricted ROM. Blood noted on nostrils. HEART: Sinus tachycardia with regular rhythm, normal S1/S2, no m/r/g LUNGS: Bilateral decreased breath sounds on bases heard on auscultation. ABDOMEN: Soft, distended and tender with good bowel sounds heard. BACK: No CVAT, no obvious deformity. EXTREMITIES: Left lower extremity with diffuse purpura/ecchymosis cold extremities. 4+ pitting edema noted on both lower extremities. NEUROLOGICAL: Grossly nonfocal. Intubated and mechanically ventilated. CN not formally tested but appear grossly intact. Skin: Left lower extremity with diffuse purpura/ecchymosis with cold extremities and 4+ pitting edema in both lower extremities. Psych: Unable to assess due to intubation Results: Labs 12/17/24 03:49 12/17/24 05:30 Labs: Short CBC 12/16/24 12/17/24 Range/Units 20:35 03:49 WBC 4.8 2.4 L D (3.8-10.6) Thou/mm3 Hgb 10.7 L 9.8 L (13.5-16.0) g/dL Hct 30.6 L 27.3 L (41.0-53.0) % Plt Count 61 L 43 L D (140-440) Thou/mm3 BMP 12/16/24 20:35 Sodium 123 L Potassium 3.8 Chloride 93 L Carbon Dioxide 11.3 L* BUN 18 Creatinine 1.5 H Glucose 59 L Calcium 8.2 L Cardiac Enzymes 12/16/24 Range/Units 20:35 Troponin I < 0.020 (0.0-0.045) ng/mL Liver Function 12/16/24 Range/Units 20:35 Total Bilirubin 9.2 H (0.3-1.2) mg/dL AST 82 H (0-34) U/L ALT 60 H (10-49) U/L Alkaline Phosphatase 115 (46-116) U/L Albumin 1.8 L (3.4-4.8) gm/dL Urine 12/16/24 Range/Units 00:00 Urine Color Drk-Yellow A (Lt Yel-Yel) Urine Clarity Turbid A (Clear/Hazy) Urine pH 6.0 (5.0-7.0) Ur Specific [place] 1.023 (1.001-1.035) Urine Protein 1+ A (Neg - Trace) Urine Glucose (UA) Negative (Negative) ABG Interpretation ABG results: 12/16/24 12/17/24 20:36 03:49 VBG pH 7.27 L 7.12 L VBG pCO2 28 L 35 L VBG pO2 36 46 VBG Base Excess -13 L -17 L Quality Measures Quality Measures none Medications Home Medications and Allergies Home Medications ?Medication ?Instructions ?Recorded ?Confirmed ?Type loratadine 10 mg tablet 10 mg PO DAILY 11/15/24 07/0 06/11 History ciprofloxacin HCl 500 mg tablet 500 mg PO Q24H 5 12/17/24 History ferrous sulfate 324 mg (65 mg 324 mg PO Q OTHER DAY 12/17/24 History iron) tablet,delayed release folic acid 1 mg tablet 1 mg PO QDAY 12/17/24 History furosemide 40 mg tablet 40 mg PO QDAY 12/17/2412/17 History loratadine 10 mg capsule (Allergy 10 mg PO Q24H 12/17/24 History Relief (loratadine)) spironolactone 100 mg tablet 100 mg PO QDAY 12/17/24 0 12/17/24 History thiamine HCl (vitamin B1) 100 mg 100 mg PO QDAY 12/17/24 History tablet (Vitamin B-1) Allergies Allergy/AdvReac Type Severity Reaction Status Date / Time No Known Drug Allergies Allergy Verified 12/17/24 06:35 Visit Medications Octreotide Acetate 1,000 mcg/ (Sodium Chloride) 102 mls @ 5.1 mls/hr IV .Q20H ONE; Protocol Stop: 12/17/24 16:34 Last Admin: 12/16/24 22:01 Dose: 50 mcg/hr, 5.1 mls/hr Propofol (Diprivan Ivpb) 1,000 mg in 100 mls @ 2.697 mls/hr IV .Q24H PRN; Protocol PRN Reason: PER PROTOCOL Stop: 01/16/25 00:36 Last Titration: 12/17/24 03:36 Dose: 10 mcg/kg/min, 5.394 mls/hr Fentanyl Citrate (Sublimaze Inj 2,500 Mcg/250 Ml Bag) 2,500 mcg in 250 mls @ 2.5 mls/hr IV .Q24H PRN; Protocol PRN Reason: PER PROTOCOL Stop: 12/22/24 02:32 Last Admin: 12/17/24 02:52 Dose: 25 mcg/hr, 2.5 mls/hr Norepinephrine/Dextrose (Levophed In D5w 8mg/250ml) 8 mg in 250 mls @ 8.428 mls/hr IV .Q24H PRN; Protocol PRN Reason: PER PROTOCOL Stop: 01/16/25 03:27 Last Admin: 12/17/24 04:17 Dose: 0.05 mcg/kg/min, 8.428 mls/hr Sodium Bicarbonate 88.23 meq/ (Dextrose) 588.23 mls @ 100 mls/hr IV .Q5H53M LINDA Stop: 01/16/25 04:12 Pantoprazole Sodium (Pantoprazole Inj 40 Mg Vial) 40 mg IVP BID [facility] Stop: 01/16/25 08:59 Discontinued Medications Bumetanide (Bumetanide Inj 0.25 Mg/Ml Vial 4 Ml) 2 mg IVP X1 ONE Stop: 12/16/24 22:47 Last Admin: 12/16/24 23:13 Dose: 2 mg Dextrose (Dextrose 50%-Water Inj 50 Ml Syringe) 50 ml IVP X1 ONE Stop: 12/17/24 04:37 Dextrose (Dextrose 50%-Water Inj 50 Ml Syringe) 50 ml IVP X1 ONE Stop: 12/17/24 04:38 Etomidate (Etomidate Inj 2 Mg/Ml Vial 10 Ml) 20 mg IVP X1 ONE Stop: 12/17/24 00:20 Last Admin: 12/17/24 03:28 Dose: 20 mg Fentanyl Citrate (Fentanyl Cit Inj 50 Mcg/Ml Amp 2ml) 50 mcg IVP X1 ONE Stop: 12/16/24 21:11 Last Admin: 12/16/24 21:45 Dose: 50 mcg Fentanyl Citrate (Fentanyl Cit Inj 50 Mcg/Ml Amp 2ml) 50 mcg IVP X1 ONE Stop: 12/17/24 01:25 Last Admin: 12/17/24 01:44 Dose: 50 mcg Piperacillin/Tazobactam/Dextrose (Zosyn) 3.375 gm in 50 mls @ 100 mls/hr IV X1 ONE Stop: 12/16/24 21:04 Last Infusion: 12/16/24 22:26 Dose: Infused Lactated Ringer's (Lactated Ringers) 1,000 mls @ 999 mls/hr IV .Q1H1M ONE Stop: 12/16/24 21:47 Last Infusion: 12/16/24 22:34 Dose: Infused Piperacillin Sod/Tazobactam (Sod 4.5 gm/ Sodium Chloride) 100 mls @ 200 mls/hr IV X1 ONE Stop: 12/17/24 04:51 Octreotide Acetate (Octreotide Acet Inj 50 Mcg/Ml Vial) 50 mcg IV X1 ONE Stop: 12/16/24 20:35 Last Admin: 12/16/24 21:53 Dose: 50 mcg Pantoprazole Sodium (Pantoprazole Inj 40 Mg Vial) 80 mg IVP X1 ONE Stop: 12/16/24 20:35 Last Admin: 12/16/24 21:48 Dose: 80 mg Phytonadione (Phytonadione Inj 10 Mg/Ml Amp) 10 mg SC X1 ONE Stop: 12/17/24 04:17 Sodium Bicarbonate (Sodium Bicarb Inj 8.4% Syr 50 Ml Syringe) 50 ml IV X1 ONE Stop: 12/16/24 22:23 Last Admin: 12/16/24 23:12 Dose: 50 ml Sodium Bicarbonate (Sodium Bicarb Inj 8.4% Syr 50 Ml Syringe) 50 ml IV X1 ONE Stop: 12/16/24 22:23 Last Admin: 12/16/24 23:13 Dose: 50 ml Succinylcholine Chloride (Succinylcholine Inj 20 Mg/Ml Vial 10 Ml) 150 mg IV X1 ONE Stop: 12/17/24 00:20 Last Admin: 12/17/24 03:28 Dose: 150 mg Tranexamic Acid (Tranexamic Acid Inj 1,000 Mg/10 Ml Vial) 1,000 mg IV X1 ONE Stop: 12/17/24 00:21 Last Admin: 12/17/24 00:20 Dose: 1,000 mg Assessment & Plan Plan This patient is a 64-year-old male with past medical history of decompensated liver cirrhosis, alcohol use disorder presented to the ED on 12/22/2024 with chief complaint of abdominal pain and left lower extremity swelling and pain. He was last evaluated have rectal bleeding. He was extremely short of breath was placed on BiPAP and endorses left lower extremity pain and swelling. Admitted for distributive shock related to distributive shock due to left lower extremity cellulitis, pneumonia, SBP and,GI bleed due to dec liver cirhosis, lactic acidosis, Met acidoisis with elevated anion gap. Point of contact his sister who is decision-maker Jonas Benitez at [phone] Daughter Chris is in [place] at [phone] #Goals of care discussion Goals of care discussion was performed with patient's family decision-maker Sister Jonas Benitez at [phone] who stated that patient needs resuscitation at any point he should be resuscitated. Patient's sister was informed that patient is critically sick and prognosis is poor however family wanted to pursue with all active management. She will be here in the hospital in the morning. Neurology #sedation due to mechanical ventilation #Acute metabolic encephalopathy due to hyperammonemia Patient was A0x3 and was place on BIPAP initially but due to episode of emesis was intubated due to concern for aspirating blood. Currently on propofol and fentanyl Ammonia 104 Treatment Plan: Continue sedation at the patient is intubated Ammonia level pending Aspiration precautions Treatment Review: Cardiovascular #Mixed shock ;Distributive and Hypovolemic shock #Disseminated intravascular coagulation #Elevated fibrinogen - in setting of decompensated liver cirrhosis and distributive shock -Patient presented with abdominal pain, left lower extremity swelling. Patient had episode of emesis bright red blood nosebleed, rectal bleed and failed left IJ central line with profuse bleeding. -Blood pressure Dropping despite pressor support with MAP of 48, fibrinogen 71, D-dimer 2093 -CRP 3.3, procalcitonin 17.29., LDH 303 -VBG showed pH 7.12, pCO2 35, PO2 46 -Chest x-ray showed atelectasis with early pneumonia right base. DDx: GI bleed, distributive shock, left lower extremity cellulitis, cystitis, community acquired pneumonia, SBP due to decompensated liver cirrhosis Diagnostic Test: Chest x-ray, VBG, lactic acid, bleeding overtly, urine analysis -Rt Femoral central line placed Treatment Plan: -Started Levophed and vasopressin -Consider adding epinephrine if MAP remains below with maxed out Levophed -1 PRBC unit, tranexamic acid was given and FFP ordered -Continue IV antibiotics Treatment Review: #Lactic acidosis likely type B -Lactic acid remained elevated currently at 11 - Related to shock/hypoperfusion Treatment plan -Follow-up with lactic acid 3 hourly -Continue Levophed and vasopressin -Treating underlying infection and shock with pressor support - Transfusing blood Respiratory #Acute hypoxic respiratory failure requiring #Intubated and mechanically ventilated #Community accq pneumonia DDx: Community-acquired pneumonia, aspiration pneumonia Diagnostic Test: VT settings: Vt 385 flow 57 RR 22 PEEP 5.0 fIO2 65 AC/VC Treatment Plan: -Continue intubation and mechanical ventilation -Follow-up with ABGs -Continue antibiotics Treatment Review: GI and F/E/N #GI bleed related to decompensated liver cirrhosis in the setting of alcohol use disorder #Coagulopathy #Elevated liver enzymes and total bilirubin -Patient stopped drinking alcohol a month ago. Used to drink moderately. Works in [employer] and [employer] near [place]. Patient had a vomiting episode with blood before intubation. Diagnostic Test: -CT left lower extremity showed Diffuse subcutaneous fat edema, consider anasarca and cellulitis in the differential diagnosis.Air within the urinary bladder, possibly postprocedural or possibly due to cystitis. Emphysematous cystitis was ruled out. -CT angio chest abdomen pelvis showed Acute compression fracture of the superior endplate of T11 without evidence of bone fragment retropulsion, about 10% decrease in vertebral height. Correlation with CT of the thoracolumbar spine is recommended.Dilated left atrium.Multifocal pneumonia.Small bilateral pleural effusions.Cirrhosis associated with ascites.Gallstones and gallbladder wall thickening, possibly due to chronic or possibly due to diuresis chronic liver disease.Possible sigmoiditis. -Per chart review colonoscopy showed hemorrhoids with moderate diverticulosis. EGD showed grade 3 esophageal varices which were banded on October 16, 2024. Treatment Plan: -Continue IV Protonix 40 mg IV twice daily -Continue octreotide -N.p.o. for EGD most likely -Tranexamic acid given x 1 - Ordered 1 unit PRBC and FFP -PRBC if hemoglobin drops below 7 -Platelet transfusion if platelet drops below 50 in the setting of active bleeding -GI consulted Treatment Review: #Decompensated liver cirrhosis #Anasarca #Moderate ascites #Coagulopathy #Hypoalbuminemia -History of alcohol use -Albumin 1.1, BNP 277 -Last drink was month ago - MELD NA 35 , 60-65% Mortality -MDF score 96.4 Poor prognosis -Child Delgado class C Treatment plan: -Started IV albumin 25 g 3 times daily -FFP ordered -GI bleed, appreciate recs - Bleeding precautions -Consider paracentesis if clinically stable - Family is aware of patient's poor prognosis Renal #Anion gap metabolic acidosis and lactic acidosis non compensated -Related to shock and lactic acid and RAPHAEL -VBG showed pH 7.12, CXR974, oxygen saturation 69 -Aguirre formula: expected pco2 : 24-28 current pco2 35 on vbg Treatment Plan: -Continue bicarb drip -2 ampoules of bicarb were given -Continue pressor support Treatment Review: #RAPHAEL -Likely hypotension related to active bleeding, distributive shock, hepatorenal, - BUN 18 and creatinine 1.5--> 2.2 Treatment plan - IV fluids sepsis bolus was given initially after that bumex was given -Avoid nephrotoxic agents -Renally dose medication -Strict I&O's -Correction of electrolytes as needed -Follow-up with renal panel #Hypervolemic hyponatremia and hypochloremia - Sodium 125, potassium 3.8, chloride 95, osmolality 253 -Patient has anasarca with 4+ pitting edema both lower extremities. - 2 mg Bumex was given IV x 1 Treatment plan - Continue sodium checks Q2 hourly - Patient did not response well to Bumex Heme #Acute blood loss anemia #Macrocytic anemia #Leukopenia #Hypoalbuminemia #Thrombocytopenia #Coagulopathy #DIC -White count dropped to 2.4 -Hemoglobin 10-> 9.8, fibrinogen 71, D-dimer 2980, PT 31.4, platelets 43 Treatment Plan: -Albumin 25 g thrice daily -FFP ordered -Bleeding precautions -Neutropenic precautions Treatment Review: Endo # Persistent hypoglycemia -Related to shock and DIC Blood sugars have been low Treatment Plan: -Started D10 at 50 cc/h Treatment Review: MSK #Left lower extremity cellulitis and edema #Acute fracture of T11 vertebrae body per CT finding -Patient was noted to have left lower extremity swelling and pain with ecchymosis from last couple of days. - CT left lower extremity showed subcutaneous edema and swelling. No air was seen in the subcutaneous tissue however tele- radiologist reported that necrotizing fasciitis cannot be ruled out. Treatment plan -Started IV Zosyn - Surgery, Dr. Hawthorne consulted ID #Septic Shock #GNR Bacteremia #DIC #Distribution of shock related to left lower extremity cellulitis, cystitis, UTI, pneumonia, SBP Diagnostic Test: Lactic acid, CT, CBC Treatment Plan: -Continue Zosyn -Consider ID consult -Consider doing paracentesis for moderate ascites seen on CT Treatment Review: DVT prophylaxis: SCDs cannot be placed due to left lower extremity cellulitis GI prophylaxis: Protonix 40 IV twice daily, octreotide Diet: N.p.o. Merlos: Present Lines: Peripherals,RT FEMORAL LINE Drips: Levophed and vasopressin Vent: Mechanically ventilated CODE STATUS: Full code Reason of hospitalization: Admitted for Septic shock 2/2 GNR bacteremia, due to left lower extremity cellulitis, pneumonia, SBP and,GI bleed due to dic liver cirhosis, lactic acidosis, Met acidoisis with elevated anion gap. Patient discussed with my attending, Dr. Austin garcia MD, PGY 3 Attending Provider Attestation/Addendum After examination of the patient and review of the clinical data I feel that this patient needs admission to the hospital for further treatment/evaluation. Time spent on critical patient's evaluation and plan of care 60 minutes. Attending Provider Attestation/Addendum I attest that I was physically present for the evaluation, physical examination, lab and imaging review of the patient with the residents. I discussed the case with the residents and agree with the findings and plans of care as documented above. Va Avila MD
[2024-12-17 05:00] LABS: Reflex Lactate? Y
[2024-12-17 06:08] LABS: C-Reactive Protein 3.3 mg/dL (0.0-0.9)
--- NOTE | 2024-12-17 06:10 | PC.NURSE ---
Report called to ICU nurse LYRIC Sims
[2024-12-17 06:17] LABS: Ammonia 104 uMol/L (11-32)
--- NOTE | 2024-12-17 06:30 | PC.NURSE ---
Received patient from ED at around 0630, patient then transferred to ICU bed, patient became more hypotensive, emergency titrated levophed. Patient started on vasopressin and d10w, blood glucose at 48, MD Dale verbally ordered another d50. patient's BP was stabilized. Gave report to incoming LYRIC Hernandez.
[2024-12-17] MEDS: Sodium Bicarb 8.4% 50ml Vial* 88.23 MEQ in DEXTROSE 5%-WATER 500 ML 100 MEQ IV ×3 (06:37→18:14)
[2024-12-17 06:39] LABS: Lactic Acid, 3 HR 11.6 mMol/L (0.4-2.0)
[2024-12-17] MEDS: VASOPRESSIN IN NS IVPB 20 UNIT/100 ML BAG 9 UNIT IV ×2 (06:40→16:25)
[2024-12-17] MEDS: DEXTROSE 10%-WATER 1000 ML 1,000 ML 50 ML IV (06:41)
[2024-12-17 06:53] LABS: Alanine Aminotransferase 44 U/L (10-49); Albumin, Serum 1.1 gm/dL (3.4-4.8); Albumin/Globulin Ratio 0.4 (1.2-2.2); Alkaline Phosphatase 59 U/L (46-116); Anion Gap 18 (7-16); Aspartate Amino Transferase 82 U/L (0-34); BUN/Creatinine Ratio 11 Ratio (12-20); Bilirubin,Total 6.5 mg/dL (0.3-1.2); Blood Urea Nitrogen 21 mg/dL (9-23); Calcium 7.1 mg/dL (8.3-10.6); Calcium (Corrected) 9.4 mg/dL (8.5-10.1); Chloride 95 mMol/L (98-107); Creatinine (Component) 2.0 mg/dL (0.6-1.3); Estimated Creatinine Clearance 40.6 mL/min (>60); Globulin 2.6 gm/dL (2.3-3.5); Glucose 82 mg/dL (74-106); Osmolality,Calculated 253 (275-295); Potassium 3.8 mMol/L (3.4-5.1); Sodium 125 mMol/L (136-145); Total Protein 3.7 gm/dL (5.7-8.2); eGFR 37 See Note
[2024-12-17 06:59] LABS: Reflex Lactate? Y
[2024-12-17 07:01] LABS: Carbon Dioxide 11.9 mMol/L (20.0-31.0)
[2024-12-17] MEDS: PIPER/TAZO INJ 4.5 GM in SODIUM CHLORIDE 0.9% (POP) 100 ML IV (07:17)
[2024-12-17] MEDS: PHYTONADIONE INJ 10 MG/ML AMP SC (07:21)
[2024-12-17] MEDS: ALBUMIN HUMAN 25% IV (08:23)
[2024-12-17 08:52] LABS: Base Excess -17 (-3-3); HCO3 12 mEq/L (20-26); Inspired Oxygen, FIO2 65 %; O2 Saturation 97 % (91-98); PCO2 35 mmHg (32.0-48.0); PO2 99 mmHg (83-108)
[2024-12-17 08:54] LABS: Allen Test Performed/OK; Puncture Site Left Radial
[2024-12-17 08:55] LABS: pH, Arterial 7.12 (7.35-7.45)
[2024-12-17] MEDS: MIDAZOLAM INJ 1 MG/ML VIAL 2 ML 2 MG IVP (09:02)
[2024-12-17] MEDS: MIDAZOLAM/NS 100 MG IVPB 100 MG/100 ML BAG IV (09:05)
[2024-12-17 09:06] LABS: Lactic Acid, 3 HR 12.3 mMol/L (0.4-2.0)
[2024-12-17] MEDS: PIPER/TAZO 3.375 GM PREMIX 3.375 GM/50 ML BAG IV ×3 (09:19→22:55)
[2024-12-17] MEDS: Norepinephrine/NS 16mg/250ml 16 MG/250 ML BAG 40.455 MG IV (09:32)
--- NOTE | 2024-12-17 10:00 | PD.RESPROC ---
PROCEDURES: Procedure Date / Time 12/17/24 2331 Procedure Narrative Procedure Narrative: Attending Attestation: I was present for entire procedure. No immediate complications. Patient tolerated procedure well with minimal blood loss. Arterial Line Indication(s): frequent arterial line sampling, hypoxic resp failure, shock and inability to monitor non-invasive BP Informed consent obtained: obtained from surrogate decision maker Time out done, and the following verified: correct patient, side and site, procedure, patient position and implants and/or equipment Size (Gauge): 20 Technique used: guide wire technique Post-Procedure: line sutured into place and dry sterile dressing placed Patient tolerated procedure: well and no complications EBL(ml): 10 Complications: none Site: right and femoral Procedure comment: Procedure performed under supervision of Dr Arvin Rojas, PGY2
--- NOTE | 2024-12-17 10:04 | PD.NEPHCONS ---
History of Present Illness Data of Consult Consult date: 12/17/24 Requesting Physician: Maximino Sheridan MD Primary Care Provider: Physician No Primary/Family Consult Narrative Reason for consult: RAPHAEL, metabolic acidosis History of present illness: Chart review done as patient is currently intubated Mr. Toribio is a 64-year-old gentleman with past medical history of decompensated liver cirrhosis, alcohol use disorder presented to the ED on 12/16/2024 with chief complaint of abdominal pain and left lower extremity swelling and pain- 2 days. He also reported to have rectal bleeding. He was extremely short of breath was placed on BiPAP and endorsed left lower extremity pain and swelling. He is under the care of liver team at [place] per chart. In the ED, patient was hypotensive with blood pressure 114/75, heart rate 84, respiratory rate 20, afebrile and saturating well on room air. Central line left IJ was initially tried however left IJ line went to right IJ therefore line was removed and profuse bleeding was seen. Patient had a emesis with blood therefore patient was intubated and started on mechanical ventilation. Nosebleeding was also seen. CBC showed white count 2.4, hemoglobin 9.8, MCV 116, platelet count 43. PT 31.4, fibrinogen 71, D-dimer 2980. VBG showed pH 7.12, PCO2 35, PO2 46. Chemistry panel is pending. Recent BUN was 18 and creatinine 1.5. LDH 203. Troponin I was negative. CRP 3.3. BNP 277. Procalcitonin 17.29. Subsequently was intubated for airway protection and started on pressors for significant hypotension. Patient currently on Levophed, vasopressin, bicarb drip, octreotide, IV Protonix and fluids. Chest x-ray showed atelectasis with early pneumonia right base. CT left lower extremity showed Diffuse subcutaneous fat edema, consider anasarca and cellulitis in the differential diagnosis.Air within the urinary bladder, possibly postprocedural or possibly due to cystitis. Emphysematous cystitis was ruled out. CT angio chest abdomen pelvis showed Acute compression fracture of the superior endplate of T11 without evidence of bone fragment retropulsion, about 10% decrease in vertebral height. Correlation with CT of the thoracolumbar spine is recommended.Dilated left atrium.Multifocal pneumonia.Small bilateral pleural effusions.Cirrhosis associated with ascites.Gallstones and gallbladder wall thickening, possibly due to chronic or possibly due to diuresis chronic liver disease.Possible sigmoiditis. Home medications:Ciprofloxacin 500 mg every 12, ferrous sulfate iron, folic acid 1 mg, Lasix 40 p.o. daily, loratadine 10 mg Q12, Protonix 40 mg, spironolactone 100 mg, thiamine 100 mg Patient is admitted to ICU for distributive shock related to distributive shock due to left lower extremity ecchymosis/bleeding, hypoxic respiratory failure, GI bleed, decompensated liver cirrhosis, anion gap metabolic acidosis and acute renal failure. Nephrology consultation was requested for need for CRRT. Patient currently seen in ICU. ICU team at bedside. ICU team placed a Vas-Cath. cc:: cc: Maximino Sheridan MD Review of Systems Review of Systems ROS Unobtainable: unobtainable due to medical condition and due to endotracheal tube Past Medical History Past Medical History NEUROLOGIC: Negative Seizures CARDIAC: Negative Cardiac Disorders or Congestive Heart Failure RESPIRATORY: Negative Chronic Obstructive Pulmonary Disease (COPD) or Asthma GASTROINTESTINAL: Positive Cirrhosis GENITOURINARY: Negative Renal Disease ENDOCRINE: Negative Diabetes Mellitus Type 1 or Diabetes Mellitus Type 2 HEMATOLOGIC: Negative Sickle Cell Disease OTHER HISTORY: Negative Blood Transfusions, Blood Transfusion Reaction or Anesthesia Reactions Surgical History OTHER SURGICAL HX: As in the history of present illness Social History SMOKING STATUS: Current some day smoker SECOND HAND EXPOSURE: No SUBSTANCE USE: does not use Meds Home Medications and Allergies Home Medications ?Medication ?Instructions ?Recorded ?Confirmed ?Type loratadine 10 mg tablet 10 mg PO DAILY 11/15/24 11/15/24 History ciprofloxacin HCl 500 mg tablet 500 mg PO Q24H 12/17/24 12/17/24 History ferrous sulfate 324 mg (65 mg 324 mg PO Q OTHER DAY 12/17/24 12/17/24 History iron) tablet,delayed release folic acid 1 mg tablet 1 mg PO QDAY 12/17/24 12/17/24 History furosemide 40 mg tablet 40 mg PO QDAY 12/17/24 12/17/24 History loratadine 10 mg capsule (Allergy 10 mg PO Q24H 12/17/24 12/17/24 History Relief (loratadine)) spironolactone 100 mg tablet 100 mg PO QDAY 12/17/24 12/17/24 History thiamine HCl (vitamin B1) 100 mg 100 mg PO QDAY 12/17/24 12/17/24 History tablet (Vitamin B-1) Allergies Allergy/AdvReac Type Severity Reaction Status Date / Time No Known Drug Allergies Allergy Verified 12/17/24 06:35 Exam Vital Signs Temp Pulse Resp BP Pulse Ox O2 Del Method O2 Flow Rate 35.4 C L 0 L 26 H 133/45 H 71 L Mechanical Ventilation 2 12/18/24 12:00 12/18/24 15:05 12/18/24 09:14 12/18/24 14:13 12/18/24 14:46 12/18/24 12:00 12/16/24 20:37 FiO2 85 12/18/24 14:13 Narrative Exam GENERAL APPEARANCE: Patient currently seen in ICU. On multiple drips. Orotracheal intubation noted. NECK: Neck supple, no JVD or bruit CARDIOVASCULAR: Heart regular, no murmurs, tachycardia LUNGS/CHEST: Bilateral rhonchi ABDOMEN: Soft, distended. No masses. Normal bowel sounds. EXTREMITIES: Significant edema in the lower EXTR SKIN: Left leg Completely ecchymotic and severe discoloration noted. MUSCULOSKELETAL:in bed NEUROLOGICAL : intubated, sedated Results Labs 12/18/24 07:50 12/18/24 09:20 Labs: Short CBC 12/17/24 12/18/24 12/18/24 Range/Units 17:30 04:40 07:50 WBC 6.9 D 17.1 H D (3.8-10.6) Thou/mm3 Hgb 5.2 L* D 6.5 L* D 6.3 L* (13.5-16.0) g/dL Hct 15.2 L* 19.1 L* 18.9 L* (41.0-53.0) % Plt Count 20 L* D 66 L D (140-440) Thou/mm3 BMP 12/17/24 12/17/24 12/18/24 17:30 22:34 04:40 Sodium 128 L 132 L 133 L Potassium 4.0 3.8 4.0 Chloride 94 L 96 L 96 L Carbon Dioxide 15.0 L 17.2 L 16.7 L BUN 20 12 8 L Creatinine 1.9 H 1.3 D 1.0 Glucose 93 78 77 Calcium 7.1 L 7.2 L 6.9 L 12/18/24 09:20 Sodium 133 L Potassium 4.1 Chloride 97 L Carbon Dioxide 12.5 L* BUN 9 Creatinine 1.2 Glucose 123 H D Calcium 6.7 L* Liver Function 12/17/24 12/17/24 12/18/24 Range/Units 17:30 22:34 04:40 Total Bilirubin 8.0 H D 8.7 H D (0.3-1.2) mg/dL AST 281 H 1083 H* (0-34) U/L ALT 101 H 376 H (10-49) U/L Alkaline Phosphatase 31 L D 31 L (46-116) U/L Albumin 2.0 L D 1.8 L 1.9 L (3.4-4.8) gm/dL 12/18/24 Range/Units 09:20 Total Bilirubin (0.3-1.2) mg/dL AST (0-34) U/L ALT (10-49) U/L Alkaline Phosphatase (46-116) U/L Albumin 1.6 L (3.4-4.8) gm/dL ABG Interpretation ABG results: 12/16/24 12/17/24 12/17/24 20:36 03:49 08:35 ABG pH 7.12 L* ABG pCO2 35 ABG pO2 99 ABG HCO3 12 L ABG O2 Saturation 97 ABG Base Excess -17 L VBG pH 7.27 L 7.12 L VBG pCO2 28 L 35 L VBG pO2 36 46 VBG Base Excess -13 L -17 L 12/17/24 12/18/24 13:37 05:11 ABG pH 7.20 L 7.26 L ABG pCO2 27 L 39 D ABG pO2 81 L 50 L* D ABG HCO3 10 L 17 L ABG O2 Saturation 96 84 L ABG Base Excess -16 L -9 L VBG pH VBG pCO2 VBG pO2 VBG Base Excess Assessment & Plan Assessment and plan (1) DIC (disseminated intravascular coagulation): Status: Acute (2) Upper gastrointestinal bleed: Status: Acute (3) Sepsis: Status: Acute (4) Pneumonia: Status: Acute (5) End-stage liver disease: Status: Acute (6) Acute renal failure (ARF): Status: Acute (7) Shock: Status: Acute (8) Thrombocytopenia: Status: Acute (9) Hypercoagulable state: Status: Acute Additional Assessment & Plan Additional Plan: Patient with end-stage liver disease presented with shock, multisystem organ failure. Currently with acute renal failure and no urinary output. Life-threatening metabolic acidosis. Decided to proceed with CRRT. Prognosis remains guarded. On 11 drips. CRRT-16 hrs-HD only 2K 136 NA 40 bicarbonate Saline flushes 50 mL/h Citrasate Blood flow 150 Dialysate flow 100 Plan of care discussed with ICU team. Critical care time spent today more than 45 minutes regarding plan of care and disease management. Medications and labs reviewed. Plan of care discussed with family at bedside. Thank you Dr. Sheridan for allowing me to participate in the care of Mr. Toribio PROCEDURES: Arterial Line Size (Gauge): 20
--- NOTE | 2024-12-17 10:30 | PD.RESPROC ---
PROCEDURES: Procedure Date / Time 12/17/24 2001 Procedure Narrative Procedure Narrative: Attending Attestation: I was present for entire procedure. No immediate complications. Patient tolerated procedure well. Follow up chest film with adequate placement and no post-procedure PTX. 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 Remains on multi-drug regimen of high dose vasopressors. Central Line Placement Right IJ: Indication(s): shock Informed consent obtained: obtained from surrogate decision maker Time out done, and the following verified: correct patient, side and site, procedure, patient position and implants and/or equipment Patient placed on monitor/pulse ox: Yes Hand Hygiene: scrub, soap & water and alcohol-based hand rub Max Sterile Barrier Techniques used: cap, mask, sterile gown, sterile gloves and sterile full body drape Central line prep: Chlorhexidine scrub and sterile drapes applied Local anesthesia used: lidocaine 1% Amount of anesthesia used (mL): 3 Ultrasound used for placement: Yes Sterile Technique if Ultrasound used, including sterile gel: yes Central line lumen inserted: triple Post procedure: sutured in place, good blood return, all ports aspirated, flushed, capped and sterile dressing applied Post procedure x-ray: tip of catheter in good position and no pneumothorax seen Patient tolerated procedure: well and no complications EBL(ml): 10 Complications: none Procedure comment: Procedure performed under supervision of Dr Arvin Rojas, PGY2
[2024-12-17 10:51] LABS: Sodium 124 mMol/L (136-145)
--- NOTE | 2024-12-17 11:23 | PD.SURCONS ---
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 Pt was intubated in ER and required initiation of pressor support, with markedly abormal labs consistent with decompensated cirrhosis and DIC. Pt was noted to have significant bruising all along his left lower extremity for which general surgery was consulted. 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 Meds: No antiplt or anticoagulation Allergies: NKDA Review of Systems Review of Systems ROS Unobtainable: unobtainable due to mental status and unobtainable due to endotracheal tube Meds Home Medications and Allergies Home Medications ?Medication ?Instructions ?Recorded ?Confirmed ?Type loratadine 10 mg tablet 10 mg PO DAILY 11/15/24 11/15/24 History ciprofloxacin HCl 500 mg tablet 500 mg PO Q24H 12/17/24 12/17/24 History ferrous sulfate 324 mg (65 mg 324 mg PO Q OTHER DAY 12/17/24 12/17/24 History iron) tablet,delayed release folic acid 1 mg tablet 1 mg PO QDAY 12/17/24 12/17/24 History furosemide 40 mg tablet 40 mg PO QDAY 12/17/24 12/17/24 History loratadine 10 mg capsule (Allergy 10 mg PO Q24H 12/17/24 12/17/24 History Relief (loratadine)) spironolactone 100 mg tablet 100 mg PO QDAY 12/17/24 12/17/24 History thiamine HCl (vitamin B1) 100 mg 100 mg PO QDAY 12/17/24 12/17/24 History tablet (Vitamin B-1) Allergies Allergy/AdvReac Type Severity Reaction Status Date / Time No Known Drug Allergies Allergy Verified 12/17/24 06:35 Exam Vital Signs Temp Pulse Resp BP Pulse Ox O2 Del Method O2 Flow Rate 98.1 F 105 H 30 H 115/57 L 100 Nasal Cannula 2 12/17/24 11:20 12/17/24 11:20 12/17/24 11:20 12/17/24 11:20 12/17/24 10:50 12/16/24 20:37 12/16/24 20:37 FiO2 65 12/17/24 10:50 Constitutional Constitutional: no acute distress Routine Respiratory Exam Respiratory: Present no resp distress Routine Extremities Exam Comments: left lower extremity ecchymotic diffusely, soft and warm with no signs of crepitus or fluctuance Results Results: Laboratory Laboratory results: results reviewed Results: Imaging Imaging narrative: CT LLE reviewed Assessment & Plan Plan 64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 No surgical intervention needed for LLE Please reconsult with concerns or questions
--- NOTE | 2024-12-17 12:02 | XR_ITS ---
Examination: AP chest single view TECHNIQUE: AP portable supine chest single view Date and time: December 17, 2024, 12:19 PM Comparison December 17, 2024 0203 hours INDICATIONS: Hypoxic respiratory failure post line placement, dialysis catheter today FINDINGS: [id number] chronic heart failure pattern Enlarged cardiac contour with prominent vascular congestion including central vascular engorgement and perihilar edema Endotracheal tube tip 5.5 cm above miguel. The orogastric tube is in the stomach, the tip is below the level of the film Right internal jugular temporary dialysis catheter tip SVC IMPRESSION: [id number] chronic heart failure pattern. Pulmonary artery hypertension pattern. Interval right internal jugular temporary dialysis catheter, tip SVC with no pneumothorax
[2024-12-17] MEDS: OCTREOTIDE ACET INJ 1,000 MCG in SODIUM CHLORIDE 0.9% 100 ML 5.1 MCG IV (12:53)
[2024-12-17] MEDS: HEPARIN SOD INJ 1000 UNIT/ML VIAL 10 ML 2600 UNIT INDWELLCAT (13:18)
[2024-12-17] MEDS: Norepinephrine/NS 16mg/250ml 16 MG/250 ML BAG 77.539 MG IV (13:39)
[2024-12-17 13:44] LABS: Base Excess -16 (-3-3); HCO3 10 mEq/L (20-26); Inspired Oxygen, FIO2 40 %; O2 Saturation 96 % (91-98); PCO2 27 mmHg (32.0-48.0); PO2 81 mmHg (83-108); pH, Arterial 7.20 (7.35-7.45)
[2024-12-17 13:57] LABS: Puncture Site Arterial Line
--- NOTE | 2024-12-17 14:00 | PD.RESPRO ---
Documentation for date of: 12/17/24 Subjective Subjective Interval history: This patient is a 64-year-old male with past medical history of decompensated liver cirrhosis, alcohol use disorder presented to the ED on 12/16/2024 with chief complaint of abdominal pain and left lower extremity swelling and pain. He also reported to have rectal bleeding. He was extremely short of breath was placed on BiPAP and endorsed left lower extremity pain and swelling. Patient's family relative were present at bedside and sister was not at the time of history taking and she reported that patient was having abdominal pain, shortness of breath, left lower extremity swelling and pain from last couple of days. He was getting treatment for liver cirrhosis at [facility] and was also given medications. Family relative reported that patient was admitted in [facility] in October for 2 to 3 days. Limited history available. Point of contact his sister who is decision-maker Jonas Benitez at [phone] Daughter Chris is in [place] at [phone] ED course: In the ED, patient was hypotensive with blood pressure 114/75, heart rate 84, respiratory rate 20, afebrile and saturating well on room air. Central line left IJ was initially tried however left IJ line went to right IJ therefore line was removed and profuse bleeding was seen. Patient had a emesis with blood therefore patient was intubated and started on mechanical ventilation. Nosebleeding was also seen. CBC showed white count 2.4, hemoglobin 9.8, MCV 116, platelet count 43. PT 31.4, fibrinogen 71, D-dimer 2980. VBG showed pH 7.12, PCO2 35, PO2 46. Chemistry panel is pending. Recent BUN was 18 and creatinine 1.5. LDH 203. Troponin I was negative. CRP 3.3. BNP 277. Procalcitonin 17.29. Patient had a complicated course in the ER had failed left IJ catheter placement leading to profuse bleeding, nosebleed, emesis with blood and was eventually intubated with mechanical ventilation. Patient's blood pressure has been consistently dropping along with blood sugars initially were undetectable and also dropping. Patient was started on Levophed, vasopressin, bicarb, 4 ampoules of D50 were given, Zosyn, octreotide, Protonix, fluids. Chest x-ray showed atelectasis with early pneumonia right base. CT left lower extremity showed Diffuse subcutaneous fat edema, consider anasarca and cellulitis in the differential diagnosis.Air within the urinary bladder, possibly postprocedural or possibly due to cystitis. Emphysematous cystitis was ruled out. CT angio chest abdomen pelvis showed Acute compression fracture of the superior endplate of T11 without evidence of bone fragment retropulsion, about 10% decrease in vertebral height. Correlation with CT of the thoracolumbar spine is recommended.Dilated left atrium.Multifocal pneumonia.Small bilateral pleural effusions.Cirrhosis associated with ascites.Gallstones and gallbladder wall thickening, possibly due to chronic or possibly due to diuresis chronic liver disease.Possible sigmoiditis. Per chart review colonoscopy showed hemorrhoids with moderate diverticulosis. EGD showed grade 3 esophageal varices which were banded on October 16, 2024. Patient is admitted for distributive shock related to distributive shock due to left lower extremity cellulitis, pneumonia, SBP and,GI bleed due to dec liver cirhosis, lactic acidosis, Met acidoisis with elevated anion gap. 12/17/2024: Patient is seen and examined at bedside in the ICU. Admitted overnight. Sedated and on mechanical ventilator, AC/VC mode, tidal volume increased to 510, PEEP 5. Patient is admitted in ICUin view of shock, likely distributive in the setting of GNR bacteremia, sepsis, third space fluid loss from decompensated liver disease and suspected hypovolemic shock, secondary to blood loss from the underlying coagulopathy. Patient is currently on vasopressors, including Levophed, vasopressin and octreotide-able to maintain MAP above 65 mmHg. Patient was given 3 packs of cryoprecipitate, 1 pack of platelet, and FFP's in view of suspected underlying DIC. Arterial line was placed for continuous monitoring of blood gases. Patient had urine output of around 10 to 15 cc since this morning. Mining Machinery Assembler, Dr. Ferrer was consulted in view of RAPHAEL which is likely due to combined hepatorenal syndrome, prerenal RAPHAEL from shock and ATN. Vas-Cath with triple-lumen is placed as patient needs CRRT in view of RAPHAEL, high anion gap metabolic acidosis, lactic acidosis. Bedside ultrasound of the heart and IVC is done, which showed EF of around 30 to 35%. Bedside ultrasound of the abdomen and 2 L of ascites fluid is drained which was later sent for ascitic fluid analysis to rule out SBP. Will repeat labs in the evening to monitor CBC, CMP and coagulation profile. Dr. Cooper, general surgery is consulted in view of left lower extremity ecchymosis extending up to the lower back and blisters on the lateral side of the upper thigh. Recommended no surgical intervention as of now and does not suspect any necrotizing fasciitis. Patient found to have poor outcome based on current clinical condition. Family, sister who is the decision maker is informed and updated about the patient's condition. After discussing about the risks and prognosis, sister wants to change the CODE STATUS to DNR/DNI in view of severe mortality and morbidity during the chest compressions. Exam Vital Signs Temp Pulse Resp BP Pulse Ox O2 Del Method O2 Flow Rate 98.8 F 125 H 28 H 148/45 H 95 Mechanical Ventilation 2 12/17/24 16:00 12/17/24 17:45 12/17/24 15:47 12/17/24 17:45 12/17/24 17:40 12/17/24 16:00 12/16/24 20:37 FiO2 40 12/17/24 16:54 Narrative Exam General: Intubated and mechanically ventilated on VC/SIMV mode HEENT: Normocephalic, atraumatic, mucous membranes moist. Heart: Regular rate and rhythm, no murmurs. Lungs: Clear to auscultation with no wheezing or crackles. Abdomen: Soft, distended, nontender, positive bowel sounds. ?No guarding or rebound tenderness. Neurologic: Intubated and mechanically ventilated Extremities: Noted b/l pitting pedal edema, also noticed severe bruising in the left loer extremity extending upto lower back Skin: Severe ecchymoses noted on the left lower extremity Objective Labs 12/17/24 17:30 12/17/24 22:34 Labs: Laboratory Results - last 24 hr 12/16/24 12/16/24 12/16/24 00:00 20:16 20:35 WBC 4.8 RBC 2.80 L Hgb 10.7 L Hct 30.6 L MCV 109 H MCH 38.2 H MCHC 35.0 RDW Std Deviation 60.7 H Plt Count 61 L Neut % (Auto) 87 H Lymph % (Auto) 10 [place] % (Auto) 2 Eos % (Auto) 1 Baso % (Auto) 0 Neut # (Auto) 4.2 Lymph # (Auto) 0.5 L [place] # (Auto) 0.1 Eos # (Auto) 0.1 Baso # (Auto) 0.0 Immature Gran # (Auto) 0.01 H Absolute Nucleated RBC 0.02 H Immature Gran % 0 Nucleated RBC % 0 Smear Path Review PT 31.4 H* INR 3.1 H APTT 65.6 H Fibrinogen 71 L* D-Dimer 2980 H Puncture Site ABG pH ABG pCO2 ABG pO2 ABG HCO3 ABG O2 Saturation ABG Base Excess VBG pH VBG pCO2 VBG pO2 VBG O2 Sat (Gabo) VBG Base Excess FiO2 Sodium 123 L Potassium 3.8 Chloride 93 L Carbon Dioxide 11.3 L* Anion Gap 19 H BUN 18 Creatinine 1.5 H Estim Creat Clear Calc 54.2 L eGFR 52 L BUN/Creatinine Ratio 12 Glucose 59 L Calculated Osmolality 247 L Lactic Acid 10.9 H* Calcium 8.2 L Corrected Calcium 10.0 Phosphorus 3.8 Magnesium 1.6 Total Bilirubin 9.2 H AST 82 H ALT 60 H Alkaline Phosphatase 115 Ammonia Lactate Dehydrogenase 303 H Troponin I < 0.020 C-Reactive Prot, Quant B-Natriuretic Peptide 277 H Total Protein 6.1 Albumin 1.8 L Globulin 4.3 H Albumin/Globulin Ratio 0.4 L Lipase 18 Procalcitonin 17.29 H Ur Collection Type Clean Catch Urine Color Drk-Yellow A Urine Clarity Turbid A Urine pH 6.0 Ur Specific [place] 1.023 Urine Protein 1+ A Urine Glucose (UA) Negative Urine Ketones Negative Urine Blood 3+ A Urine Nitrite Negative Urine Bilirubin 1+ A Urine Urobilinogen (Auto) 3.0 Ur Leukocyte Esterase Negative Urine RBC 190 H Urine WBC 6 H Ur Squamous Epith Cells < 1 Ur Renal Epithelial Cell 12 H Urine Bacteria None Peritoneal Color Peritoneal Appearance Peritoneal WBC Peritoneal RBC Periton Polynucl WBCs Periton Mononucl WBCs Peritoneal Tot Protein Peritoneal Glucose Peritoneal Amylase Misc Test Result Platelets confirmed Blood Type Antibody Screen Crossmatch Blood Bank Wristband ID Blood Bank Comment 12/16/24 12/16/24 12/17/24 20:36 20:48 01:36 WBC RBC Hgb Hct MCV MCH MCHC RDW Std Deviation Plt Count Neut % (Auto) Lymph % (Auto) [place] % (Auto) Eos % (Auto) Baso % (Auto) Neut # (Auto) Lymph # (Auto) [place] # (Auto) Eos # (Auto) Baso # (Auto) Immature Gran # (Auto) Absolute Nucleated RBC Immature Gran % Nucleated RBC % Smear Path Review PT INR APTT Fibrinogen D-Dimer Puncture Site ABG pH ABG pCO2 ABG pO2 ABG HCO3 ABG O2 Saturation ABG Base Excess VBG pH 7.27 L VBG pCO2 28 L VBG pO2 36 VBG O2 Sat (Gabo) 54 L VBG Base Excess -13 L FiO2 Sodium Potassium Chloride Carbon Dioxide Anion Gap BUN Creatinine Estim Creat Clear Calc eGFR BUN/Creatinine Ratio Glucose Calculated Osmolality Lactic Acid 12.7 H* Calcium Corrected Calcium Phosphorus Magnesium Total Bilirubin AST ALT Alkaline Phosphatase Ammonia Lactate Dehydrogenase Troponin I C-Reactive Prot, Quant B-Natriuretic Peptide Total Protein Albumin Globulin Albumin/Globulin Ratio Lipase Procalcitonin Ur Collection Type Urine Color Urine Clarity Urine pH Ur Specific [place] Urine Protein Urine Glucose (UA) Urine Ketones Urine Blood Urine Nitrite Urine Bilirubin Urine Urobilinogen (Auto) Ur Leukocyte Esterase Urine RBC Urine WBC Ur Squamous Epith Cells Ur Renal Epithelial Cell Urine Bacteria Peritoneal Color Peritoneal Appearance Peritoneal WBC Peritoneal RBC Periton Polynucl WBCs Periton Mononucl WBCs Peritoneal Tot Protein Peritoneal Glucose Peritoneal Amylase Misc Test Result Blood Type O Positive Antibody Screen NEGATIVE Crossmatch See Detail Blood Bank Wristband ID Yes Blood Bank Comment FFP Ready 12/17/24 12/17/24 12/17/24 03:49 05:30 08:35 WBC 2.4 L D RBC 2.36 L Hgb 9.8 L Hct 27.3 L MCV 116 H MCH 41.5 H MCHC 35.9 RDW Std Deviation 61.9 H Plt Count 43 L D Neut % (Auto) 78 Lymph % (Auto) 15 [place] % (Auto) 3 Eos % (Auto) 3 Baso % (Auto) 0 Neut # (Auto) 1.9 Lymph # (Auto) 0.4 L [place] # (Auto) 0.1 Eos # (Auto) 0.1 Baso # (Auto) 0.0 Immature Gran # (Auto) 0.02 H Absolute Nucleated RBC 0.04 H Immature Gran % 1 H Nucleated RBC % 2 H Smear Path Review Sent to Pathologist PT INR APTT Fibrinogen D-Dimer Puncture Site Left Radial ABG pH 7.12 L* ABG pCO2 35 ABG pO2 99 ABG HCO3 12 L ABG O2 Saturation 97 ABG Base Excess -17 L VBG pH 7.12 L VBG pCO2 35 L VBG pO2 46 VBG O2 Sat (Gabo) 69 L D VBG Base Excess -17 L FiO2 65 Sodium 125 L Potassium 3.8 Chloride 95 L Carbon Dioxide 11.9 L* Anion Gap 18 H BUN 21 Creatinine 2.0 H D Estim Creat Clear Calc 40.6 L eGFR 37 L BUN/Creatinine Ratio 11 L Glucose 82 Calculated Osmolality 253 L Lactic Acid 11.0 H* 11.6 H* 12.3 H* Calcium 7.1 L Corrected Calcium 9.4 Phosphorus Magnesium Total Bilirubin 6.5 H D AST 82 H ALT 44 Alkaline Phosphatase 59 D Ammonia 104 H* Lactate Dehydrogenase Troponin I C-Reactive Prot, Quant 3.3 H B-Natriuretic Peptide Total Protein 3.7 L Albumin 1.1 L D Globulin 2.6 Albumin/Globulin Ratio 0.4 L Lipase Procalcitonin Ur Collection Type Urine Color Urine Clarity Urine pH Ur Specific [place] Urine Protein Urine Glucose (UA) Urine Ketones Urine Blood Urine Nitrite Urine Bilirubin Urine Urobilinogen (Auto) Ur Leukocyte Esterase Urine RBC Urine WBC Ur Squamous Epith Cells Ur Renal Epithelial Cell Urine Bacteria Peritoneal Color Peritoneal Appearance Peritoneal WBC Peritoneal RBC Periton Polynucl WBCs Periton Mononucl WBCs Peritoneal Tot Protein Peritoneal Glucose Peritoneal Amylase Misc Test Result Platelets confirmed Blood Type Antibody Screen Crossmatch Blood Bank Wristband ID Blood Bank Comment 12/17/24 12/17/24 12/17/24 10:25 13:37 15:34 WBC RBC Hgb Hct MCV MCH MCHC RDW Std Deviation Plt Count Neut % (Auto) Lymph % (Auto) [place] % (Auto) Eos % (Auto) Baso % (Auto) Neut # (Auto) Lymph # (Auto) [place] # (Auto) Eos # (Auto) Baso # (Auto) Immature Gran # (Auto) Absolute Nucleated RBC Immature Gran % Nucleated RBC % Smear Path Review PT INR APTT Fibrinogen D-Dimer Puncture Site Arterial Line ABG pH 7.20 L ABG pCO2 27 L ABG pO2 81 L ABG HCO3 10 L ABG O2 Saturation 96 ABG Base Excess -16 L VBG pH VBG pCO2 VBG pO2 VBG O2 Sat (Agbo) VBG Base Excess FiO2 40 Sodium 124 L Potassium Chloride Carbon Dioxide Anion Gap BUN Creatinine Estim Creat Clear Calc eGFR BUN/Creatinine Ratio Glucose Calculated Osmolality Lactic Acid Calcium Corrected Calcium Phosphorus Magnesium Total Bilirubin AST ALT Alkaline Phosphatase Ammonia Lactate Dehydrogenase Troponin I C-Reactive Prot, Quant B-Natriuretic Peptide Total Protein Albumin Globulin Albumin/Globulin Ratio Lipase Procalcitonin Ur Collection Type Urine Color Urine Clarity Urine pH Ur Specific [place] Urine Protein Urine Glucose (UA) Urine Ketones Urine Blood Urine Nitrite Urine Bilirubin Urine Urobilinogen (Auto) Ur Leukocyte Esterase Urine RBC Urine WBC Ur Squamous Epith Cells Ur Renal Epithelial Cell Urine Bacteria Peritoneal Color Yellow Peritoneal Appearance Cloudy Peritoneal WBC 219 Peritoneal RBC 5000 Periton Polynucl WBCs 28 Periton Mononucl WBCs 72 Peritoneal Tot Protein < 2 Peritoneal Glucose 63 Peritoneal Amylase < 20 Misc Test Result Blood Type Antibody Screen Crossmatch Blood Bank Wristband ID Blood Bank Comment ABG Interpretation ABG results: 12/16/24 12/17/24 12/17/24 20:36 03:49 08:35 ABG pH 7.12 L* ABG pCO2 35 ABG pO2 99 ABG HCO3 12 L ABG O2 Saturation 97 ABG Base Excess -17 L VBG pH 7.27 L 7.12 L VBG pCO2 28 L 35 L VBG pO2 36 46 VBG Base Excess -13 L -17 L 12/17/24 13:37 ABG pH 7.20 L ABG pCO2 27 L ABG pO2 81 L ABG HCO3 10 L ABG O2 Saturation 96 ABG Base Excess -16 L VBG pH VBG pCO2 VBG pO2 VBG Base Excess Quality Measures Quality Measures none Assessment & Plan Assessment Current Active Medications: Generic Name Dose Route Start Last Admin Trade Name Freq PRN Reason Stop Dose Admin Acetaminophen 650 mg 12/17/24 04:50 Acetaminophen 325 Mg Tablet PO 01/16/25 04:49 Q4HR PRN PAIN SCALE 1-3 (mild Acetaminophen 650 mg 12/17/24 04:50 Acetaminophen Supp 650 Mg Supp VA 01/16/25 04:49 Q4HR PRN PAIN SCALE 1-3 (mild Al Hydrox/Mg Hydrox/Simethicone 30 ml 12/17/24 04:50 Mg Hyd/Al Hyd/Freddy (Maalox Reg) Susp 30 Ml Udc PO 01/16/25 04:49 Q4HR PRN Heartburn or Upset Stomach Propofol 1,000 mg in 100 mls @ 2.697 mls/hr 12/17/24 00:37 12/17/24 09:50 Diprivan Ivpb IV 01/16/25 00:36 0 mcg/kg/min .Q24H PRN 0 mls/hr PER PROTOCOL Titration Protocol 5 MCG/KG/MIN Fentanyl Citrate 2,500 mcg in 250 mls @ 2.5 mls/hr 12/17/24 02:33 12/17/24 11:00 Sublimaze Inj 2,500 Mcg/250 Ml Bag IV 12/22/24 02:32 25 mcg/hr .Q24H PRN 2.5 mls/hr PER PROTOCOL Titration Protocol 25 MCG/HR Vasopressin/Sodium Chloride 20 unit in 100 mls @ 9 mls/hr 12/17/24 05:05 12/17/24 16:25 Vasostrict/Ns Ivpb IV 01/16/25 05:04 0.03 unit/min .Q11H7M PRN 9 mls/hr PER PROTOCOL Administration Protocol 0.03 UNIT/MIN Dextrose 1,000 mls @ 50 mls/hr 12/17/24 06:29 12/17/24 06:41 D10w 1000 Ml IV 12/18/24 02:28 50 mls/hr .Q20H LINDA Administration Midazolam HCl 100 mg in 100 mls @ 1 mls/hr 12/17/24 08:58 12/17/24 11:00 Versed Pf Inj In Ns Premix IV 12/22/24 08:57 2 mg/hr .Q24H PRN 2 mls/hr PER PROTOCOL Titration Protocol 1 MG/HR Norepinephrine Bitartrate 16 mg in 250 mls @ 4.214 mls/hr 12/17/24 09:12 12/17/24 13:39 Levophed In Ns 16mg/250ml IV 01/16/25 09:11 0.92 mcg/kg/min .Q24H PRN 77.539 mls/hr PER protocol Administration Protocol 0.05 MCG/KG/MIN Sodium Bicarbonate 88.23 meq/ 588.23 mls @ 100 mls/hr 12/17/24 11:00 12/17/24 11:32 Dextrose IV 01/16/25 10:59 100 mls/hr .Q5H53M LINDA Administration Piperacillin/Tazobactam/Dextrose 3.375 gm in 50 mls @ 12.5 mls/hr 12/17/24 14:00 12/17/24 14:54 Zosyn IV 12/24/24 13:59 12.5 mls/hr Q8HR LINDA Administration Protocol Octreotide Acetate 1,000 mcg/ 102 mls @ 5.1 mls/hr 12/17/24 12:02 12/17/24 12:53 Sodium Chloride IV 12/22/24 12:02 50 mcg/hr .Q20H LINDA 5.1 mls/hr Administration Protocol 50 MCG/HR Phenylephrine HCl 40 mg/ 100 mls @ 6.743 mls/hr 12/17/24 17:20 Sodium Chloride IV 01/16/25 17:19 .Q81C10S PRN Per Sepsis Protocol Protocol 0.5 MCG/KG/MIN Magnesium Hydroxide 30 ml 12/17/24 04:50 Milk Of Magnesia Susp 30 Ml Udc PO 01/16/25 04:49 QDAY PRN CONSTIPATION Nitroglycerin 0.4 mg 12/17/24 04:50 Nitroglycerin 0.4 Mg Subl Btl #25 SL Q5MIN PRN CHEST PAIN Pantoprazole Sodium 40 mg 12/17/24 09:00 12/17/24 09:19 Pantoprazole Inj 40 Mg Vial IVP 01/16/25 08:59 40 mg BID LINDA Administration Plan This patient is a 64-year-old male with past medical history of decompensated liver cirrhosis, alcohol use disorder presented to the ED on 12/22/2024 with chief complaint of abdominal pain and left lower extremity swelling and pain. He was last evaluated have rectal bleeding. He was extremely short of breath was placed on BiPAP and endorses left lower extremity pain and swelling. Admitted for distributive shock related to distributive shock due to left lower extremity cellulitis, pneumonia, SBP and,GI bleed due to dec liver cirhosis, lactic acidosis, Met acidoisis with elevated anion gap. Point of contact his sister who is decision-maker Jonas Benitez at [phone] Daughter Chris is in [place] at [phone] #Goals of care discussion Goals of care discussion was performed with patient's family decision-maker Sister Jonas Benitez at [phone] who stated that patient needs resuscitation at any point he should be resuscitated. Patient's sister was informed that patient is critically sick and prognosis is poor and changed code status to DNR/DNI Neurology #sedation due to mechanical ventilation #Acute metabolic encephalopathy due to hyperammonemia Patient was A0x3 and was place on BIPAP initially but due to episode of emesis was intubated due to concern for aspirating blood. Currently on propofol and fentanyl Ammonia 104 Treatment Plan: Continue sedation at the patient is intubated Aspiration precautions Treatment Review: Cardiovascular #Mixed shock ;Distributive and Hypovolemic shock #Disseminated intravascular coagulation #Elevated fibrinogen - in setting of decompensated liver cirrhosis and distributive shock -Patient presented with abdominal pain, left lower extremity swelling. Patient had episode of emesis bright red blood nosebleed, rectal bleed and failed left IJ central line with profuse bleeding. -Blood pressure Dropping despite pressor support with MAP of 48, fibrinogen 71, D-dimer 2093 -CRP 3.3, procalcitonin 17.29., LDH 303 -VBG showed pH 7.12, pCO2 35, PO2 46 -Chest x-ray showed atelectasis with early pneumonia right base. DDx: GI bleed, distributive shock, left lower extremity cellulitis, cystitis, community acquired pneumonia, SBP due to decompensated liver cirrhosis Diagnostic Test: Chest x-ray, VBG, lactic acid, bleeding overtly, urine analysis -Rt Femoral central line placed Treatment Plan: -Started Levophed and vasopressin -Consider adding phenylephrine if MAP remains below with maxed out Levophed -1 PRBC unit, tranexamic acid was given and 1 FFP, 3 Cryoprecipitates, 1 platelet transfusion given -Continue IV antibiotics #Lactic acidosis likely type B -Lactic acid remained elevated currently at 11 - Related to shock/hypoperfusion Treatment plan -Follow-up with lactic acid 3 hourly -Continue Levophed and vasopressin -Treating underlying infection and shock with pressor support - Transfusing blood Respiratory #Acute hypoxic respiratory failure requiring #Intubated and mechanically ventilated #Community accq pneumonia DDx: Community-acquired pneumonia, aspiration pneumonia Diagnostic Test: VT settings: Vt 385 flow 57 RR 22 PEEP 5.0 fIO2 65 AC/VC Treatment Plan: -Continue intubation and mechanical ventilation -Follow-up with ABGs -Continue antibiotics GI and F/E/N #GI bleed related to decompensated liver cirrhosis in the setting of alcohol use disorder #Coagulopathy #Elevated liver enzymes and total bilirubin -Patient stopped drinking alcohol a month ago. Used to drink moderately. Works in [employer] and [employer] [employer] near [place]. Patient had a vomiting episode with blood before intubation. Diagnostic Test: -CT left lower extremity showed Diffuse subcutaneous fat edema, consider anasarca and cellulitis in the differential diagnosis.Air within the urinary bladder, possibly postprocedural or possibly due to cystitis. Emphysematous cystitis was ruled out. -CT angio chest abdomen pelvis showed Acute compression fracture of the superior endplate of T11 without evidence of bone fragment retropulsion, about 10% decrease in vertebral height. Correlation with CT of the thoracolumbar spine is recommended.Dilated left atrium.Multifocal pneumonia.Small bilateral pleural effusions.Cirrhosis associated with ascites.Gallstones and gallbladder wall thickening, possibly due to chronic or possibly due to diuresis chronic liver disease.Possible sigmoiditis. -Per chart review colonoscopy showed hemorrhoids with moderate diverticulosis. EGD showed grade 3 esophageal varices which were banded on October 16, 2024. Treatment Plan: -Continue IV Protonix 40 mg IV twice daily -Continue octreotide -N.p.o. for EGD most likely -Tranexamic acid given x 1 -1 Prbc and 1 platelet transfusion given -PRBC if hemoglobin drops below 7 -GI consulted #Decompensated liver cirrhosis #Anasarca #Moderate ascites #Coagulopathy #Hypoalbuminemia -History of alcohol use -Albumin 1.1, BNP 277 -Last drink was month ago - MELD NA 35 , 60-65% Mortality -MDF score 96.4 Poor prognosis -Child Delgado class C Treatment plan: -Started IV albumin 90g -FFP transfused -GI bleed, appreciate recs - Bleeding precautions - Paracentesis done - 2l of ascitic fluid is drained - Family is aware of patient's poor prognosis Renal #Anion gap metabolic acidosis and lactic acidosis non compensated -Related to shock and lactic acid and RAPHAEL -VBG showed pH 7.12, FDI900, oxygen saturation 69 -Aguirre formula: expected pco2 : 24-28 current pco2 35 on vbg Treatment Plan: -Continue bicarb drip -2 ampoules of bicarb were given -Continue pressor support -CRRT started Treatment Review: #RAPHAEL -Likely hypotension related to active bleeding, distributive shock, hepatorenal - BUN 18 and creatinine 1.5--> 2.2 Treatment plan - IV fluids sepsis bolus was given initially after that bumex was given -Albumin 1g/kg given - 90g -Avoid nephrotoxic agents -Renally dose medication -Strict I&O's -Correction of electrolytes as needed -Follow-up with renal panel - Nephro is consulted and Started on CRRT #Hypervolemic hyponatremia and hypochloremia - Sodium 125, potassium 3.8, chloride 95, osmolality 253 -Patient has anasarca with 4+ pitting edema both lower extremities. - 2 mg Bumex was given IV x 1 Treatment plan - Continue sodium checks Q2 hourly - Patient did not response well to Bumex Heme #Acute blood loss anemia #Macrocytic anemia #Leukopenia #Hypoalbuminemia #Thrombocytopenia #Coagulopathy #DIC -White count dropped to 2.4 -Hemoglobin 10-> 9.8, fibrinogen 71, D-dimer 2980, PT 31.4, platelets 43 Treatment Plan: -Albumin 1g/kg given - 90g -FFP and platelets transfused -Bleeding precautions -Neutropenic precautions Endo # Persistent hypoglycemia -Related to shock and DIC Blood sugars have been low Treatment Plan: -Started D10 at 50 cc/h - D50 as needed if blood glucose <55 MSK #Left lower extremity cellulitis and edema #Acute fracture of T11 vertebrae body per CT finding -Patient was noted to have left lower extremity swelling and pain Per sister, she did not notice any ecchymoses on left lower extremity at home - CT left lower extremity showed subcutaneous edema and swelling. No air was seen in the subcutaneous tissue however tele- radiologist reported that necrotizing fasciitis cannot be ruled out. Treatment plan -Started IV Zosyn - Surgery, Dr. Hawthorne consulted, recommended to continue current management and no active intervention from surgical side ID #Septic Shock #GNR Bacteremia #DIC #Distribution of shock related to left lower extremity cellulitis, cystitis, UTI, pneumonia, SBP Diagnostic Test: Lactic acid, CT, CBC Treatment Plan: -Continue Zosyn -Consider ID consult -Paracentesis done, sent for analysis and culture DVT prophylaxis: SCDs cannot be placed due to left lower extremity cellulitis GI prophylaxis: Protonix 40 IV twice daily, octreotide Diet: N.p.o. Merlos: Present Lines: Peripherals,RT FEMORAL LINE, Central Right IJV Drips: Levophed and vasopressin, octreotide Vent: Mechanically ventilated CODE STATUS: Full code Reason of hospitalization: Admitted for Septic shock 2/2 GNR bacteremia, due to left lower extremity cellulitis, pneumonia, SBP and,GI bleed due to dic liver cirhosis, lactic acidosis, Met acidoisis with elevated anion gap. Patient plan of care was discussed with the [employer] Sales Representative Dr. Arvin Rojas, PGY2 Attending Provider Attestation/Addendum Patient seen and examined with above resident, Freddie Rojas MD. I agree with the findings, assessment, and plan of care as documented except for any differences below. Patient with decompensated cirrhosis with gram-negative hermila bacteremia from unclear etiology likely due to or intra-abdominal infection. Possible translocation as well given cirrhosis and bowel wall edema. Patient placed on empiric antibiotics. Started on vasopressor support, addition of phenylephrine as needed to maintain MAP greater than 70 for renal perfusion. Patient with minimal urine output, discussed with renal and subsequently decision made to place on CRRT. Patient sedated initially with propofol this has now been transitioned to Versed and fentanyl. Patient placed on mechanical ventilation with weaning of FiO2 down to 40% on PEEP of 4, adjustments made multiple times to tolerate/compensate for metabolic acidosis. Sodium bicarb drip and D10 drip for maintenance of glucose and pH in order to optimize for coagulation as well as vasopressor support. Patient given appropriate blood products to achieve hemostasis. There is report that he had a GI bleed and was placed on octreotide and Protonix. EGD was foregone after discussion with GI given his instability. Patient was DIC most notable with significant purpura and large ecchymosis along the entire left lower extremity with swelling. We have confirmed that there are pulses patient has been also evaluated by surgery with no plans for intervention. Large bolus that did eventually rupture. We have achieved hemostasis at all sites of bleeding throughout the day with adequate blood products despite his DIC. This suggests multiorgan failure which is likely insurmountable but patient's family is aware and continues to be hopeful. We have discussed this with them at length and they have subsequently decided that the patient would not benefit from ACLS indicates that his heart was to stop., Will continue to escalate care as able and will discuss with family so that they are aware of ongoing changes and can be helped with decision-making. Patient's overall prognosis remains grim but he is starting to stabilize now. Total critical care time: I personally spent 100 minutes for review of physiologic parameters, directing plan of care for today, coordination of care with other subspecialist, and counseling patient's family extensively at bedside and via telephone. This is exclusive of time spent teaching and staff performing separate billable procedures. Patient remains at significant risk for further morbidity and high mortality warranting close monitoring and care only available in the intensive care unit. Patient received critical care services for acute hypoxic respiratory failure, metabolic encephalopathy, gastrointestinal hemorrhage, DIC, decompensated cirrhosis, septic shock.
--- NOTE | 2024-12-17 15:00 | PD.RESPROC ---
PROCEDURES: Procedure Date / Time 12/17/24 1022 Procedure Narrative Procedure Narrative: Attending Attestation: I was present for entire procedure. Only 2L removed to avoid large fluid shift in septic shock. Patient tolerated procedure well with no immediate complications. Paracentesis Indication: possible spontaneous bacterial peritonitis Informed consent obtained: obtained from surrogate decision maker Time out done, and the following verified: correct patient, side and site, procedure, patient position and implants and/or equipment Procedure: diagnostic paracentesis Location: RLQ Bedside ultrasound used: yes, real-time guidance Preparation: sterile prep and drape Amount of fluid obtained (mL): 2,000 Fluid: other (straw colored) and sent to lab for analysis EBL(ml): 0 Post procedure exam: normal BP, normal HR and normal SpO2 Patient tolerated procedure: well Complications: none Procedure comment: Procedure performed under supervision of Dr Arvin Rojas, PGY2
--- NOTE | 2024-12-17 15:51 | PC.DIETICIAN ---
Dietitian recommendations: If EN is initiated, consider Trophic feeds of Vital 1.2 at 20 ml/hr via OG tube. Once more stable, advance 10 ml every 8 hrs to goal rate of 50 ml/hr x 24 hrs (no propofol) to provide: 1200ml total vol, 1440kcal, 90g protein Water flushes of 25ml/hr or per MD. Thank you
[2024-12-17] MEDS: Norepinephrine/NS 16mg/250ml 16 MG/250 ML BAG 94.395 MG IV (16:10)
[2024-12-17 16:41] LABS: Peritoneal Fluid WBC 219 /cmm
[2024-12-17 16:42] LABS: Peritoneal Fluid Appearance Cloudy; Peritoneal Fluid Color Yellow; Peritoneal Fluid Mononuclear 72 %; Peritoneal Fluid Polynuclear 28 %; RBC,Peritoneal Fluid 5000 /cmm
[2024-12-17 16:51] LABS: Amylase,Peritoneal Fluid < 20 IU/L; Glucose,Peritoneal Fluid 63 mg/dL; Protein Total,Peritoneal Fluid < 2 g/dL
[2024-12-17 17:47] LABS: Basophils # (Auto) 0.0 Thou/mm3 (0.0-0.2); Basophils % (Auto) 0 % (0-2.5); Eosinophils # (Auto) 1.2 Thou/mm3 (0.0-0.5); Eosinophils % (Auto) 18 % (0-10); Immature Granulocytes Auto 0.20 Thou/mm3 (0.00-0.00); Lymphocytes # (Auto) 0.6 Thou/mm3 (1.0-4.8); Lymphocytes % (Auto) 9 % (10-50); Mean Corpuscular HGB Conc 34.2 g/dl (31.0-37.0); Mean Corpuscular Hemoglobin 38.8 pg (25.0-35.0); Mean Corpuscular Volume 113 fL (80-100); Monocytes # (Auto) 0.1 Thou/mm3 (0.0-0.8); Monocytes % (Auto) 2 % (0-12); Neutrophils # (Auto) 4.7 Thou/mm3 (1.8-7.7); Neutrophils % (Auto) 69 % (37-80); Nucleated Red Blood Cell # 0.14 Thou/mm3 (0.00-0.00); Nucleated Red Blood Cell % 2 /100 WBC (0); RDW Standard Deviation 63.0 fL (35.1-43.9); Red Blood Count 1.34 Miln/mm3 (4.50-5.90); White Blood Count 6.9 Thou/mm3 (3.8-10.6)
[2024-12-17 17:51] LABS: Lactate (Lactic Acid) 13.4 mMol/L (0.4-2.0)
--- NOTE | 2024-12-17 17:54 | PD.IMCONS ---
HPI Data of Consult Requesting Physician: Va Avila MD Primary Care Provider: Physician No Primary/Family Consult Narrative Reason for consult: FOBT positive History of present illness: 64 years old male being asked by the ER physician to evaluate this patient for Hemoccult positive stool Patient currently in the ICU mechanically ventilated undergoing CCRT And in DIC with a PT/INR of 3.1 prothrombin time is 31.4 low fibrinogen at 71 and D-dimer of 2980 Lactic acid is at 12.7 CT angio of chest abdomen pelvis showed anasarca bibasilar pneumonia T11 acute fracture Patient did stop drinking about a month ago He did have an upper endoscopy on 11/15/2024 which showed 3+ esophageal varices requiring band ligation of the esophageal varices 11/18/2024 had a colonoscopy which showed diverticulosis of the left colon cc:: cc: Va Avila MD Review of Systems Review of Systems ROS Unobtainable: unobtainable due to medical condition Past Medical History Surgical History OTHER SURGICAL HX: As in the history of present illness Meds Home Medications and Allergies Home Medications ?Medication ?Instructions ?Recorded ?Confirmed ?Type loratadine 10 mg tablet 10 mg PO DAILY 11/15/24 11/15/24 History ciprofloxacin HCl 500 mg tablet 500 mg PO Q24H 12/17/24 12/17/24 History ferrous sulfate 324 mg (65 mg 324 mg PO Q OTHER DAY 12/17/24 12/17/24 History iron) tablet,delayed release folic acid 1 mg tablet 1 mg PO QDAY 12/17/24 12/17/24 History furosemide 40 mg tablet 40 mg PO QDAY 12/17/24 12/17/24 History loratadine 10 mg capsule (Allergy 10 mg PO Q24H 12/17/24 12/17/24 History Relief (loratadine)) spironolactone 100 mg tablet 100 mg PO QDAY 12/17/24 12/17/24 History thiamine HCl (vitamin B1) 100 mg 100 mg PO QDAY 12/17/24 12/17/24 History tablet (Vitamin B-1) Allergies Allergy/AdvReac Type Severity Reaction Status Date / Time No Known Drug Allergies Allergy Verified 12/17/24 06:35 Exam Vital Signs Temp Pulse Resp BP Pulse Ox O2 Del Method O2 Flow Rate 98.8 F 125 H 28 H 148/45 H 95 Mechanical Ventilation 2 08/02/25 16:00 12/17/24 17:45 12/17/24 15:47 12/17/24 17:45 12/17/24 17:40 12/17/24 16:00 12/16/24 20:37 FiO2 40 12/17/24 16:54 Constitutional Comments: Mechanically ventilated chronically ill-appearing Routine Respiratory Exam Comments: Mechanically ventilated Results Labs 12/17/24 03:49 12/17/24 10:25 Labs: Short CBC 12/16/24 12/17/24 Range/Units 20:35 03:49 WBC 4.8 2.4 L D (3.8-10.6) Thou/mm3 Hgb 10.7 L 9.8 L (13.5-16.0) g/dL Hct 30.6 L 27.3 L (41.0-53.0) % Plt Count 61 L 43 L D (140-440) Thou/mm3 BMP 12/16/24 12/17/24 12/17/24 20:35 05:30 10:25 Sodium 123 L 125 L 124 L Potassium 3.8 3.8 Chloride 93 L 95 L Carbon Dioxide 11.3 L* 11.9 L* BUN 18 21 Creatinine 1.5 H 2.0 H D Glucose 59 L 82 Calcium 8.2 L 7.1 L Cardiac Enzymes 12/16/24 Range/Units 20:35 Troponin I < 0.020 (0.0-0.045) ng/mL Liver Function 12/16/24 12/17/24 Range/Units 20:35 05:30 Total Bilirubin 9.2 H 6.5 H D (0.3-1.2) mg/dL AST 82 H 82 H (0-34) U/L ALT 60 H 44 (10-49) U/L Alkaline Phosphatase 115 59 D (46-116) U/L Albumin 1.8 L 1.1 L D (3.4-4.8) gm/dL Urine 12/16/24 Range/Units 00:00 Urine Color Drk-Yellow A (Lt Yel-Yel) Urine Clarity Turbid A (Clear/Hazy) Urine pH 6.0 (5.0-7.0) Ur Specific [place] 1.023 (1.001-1.035) Urine Protein 1+ A (Neg - Trace) Urine Glucose (UA) Negative (Negative) ABG Interpretation ABG results: 12/16/24 12/17/24 12/17/24 20:36 03:49 08:35 ABG pH 7.12 L* ABG pCO2 35 ABG pO2 99 ABG HCO3 12 L ABG O2 Saturation 97 ABG Base Excess -17 L VBG pH 7.27 L 7.12 L VBG pCO2 28 L 35 L VBG pO2 36 46 VBG Base Excess -13 L -17 L 12/17/24 13:37 ABG pH 7.20 L ABG pCO2 27 L ABG pO2 81 L ABG HCO3 10 L ABG O2 Saturation 96 ABG Base Excess -16 L VBG pH VBG pCO2 VBG pO2 VBG Base Excess Assessment and Plan Additional Assessment & Plan Additional Plan: # FOBT positive in a patient with previous history of band ligations of the esophageal varices on 11/15/2024 No signs of an active bleeding Patient is mechanically ventilated severe lactic acidosis critically sick undergoing CCRT Hemoccult positivity's list of his problems particularly when he is in DIC Plan No invasive GI workup recommended at this time as he has gross electrolyte abnormalities Will follow the CBC Transfuse as necessary Will follow the patient Thank you very much for the opportunity for to participate in the care of this patient
[2024-12-17 17:55] LABS: Hematocrit 15.2 % (41.0-53.0)
[2024-12-17 17:56] LABS: Hemoglobin 5.2 g/dL (13.5-16.0); Platelet Count 20 Thou/mm3 (140-440)
[2024-12-17 18:06] LABS: Alanine Aminotransferase 101 U/L (10-49); Albumin, Serum 2.0 gm/dL (3.4-4.8); Albumin/Globulin Ratio 1.2 (1.2-2.2); Alkaline Phosphatase 31 U/L (46-116); Anion Gap 19 (7-16); Aspartate Amino Transferase 281 U/L (0-34); BUN/Creatinine Ratio 11 Ratio (12-20); Bilirubin,Total 8.0 mg/dL (0.3-1.2); Blood Urea Nitrogen 20 mg/dL (9-23); Calcium 7.1 mg/dL (8.3-10.6); Calcium (Corrected) 8.7 mg/dL (8.5-10.1); Chloride 94 mMol/L (98-107); Creatinine (Component) 1.9 mg/dL (0.6-1.3); Estimated Creatinine Clearance 41.2 mL/min (>60); Globulin 1.7 gm/dL (2.3-3.5); Glucose 93 mg/dL (74-106); Osmolality,Calculated 259 (275-295); Potassium 4.0 mMol/L (3.4-5.1); Sodium 128 mMol/L (136-145); Total Protein 3.7 gm/dL (5.7-8.2); eGFR 39 See Note
[2024-12-17 18:10] LABS: Slide Review Platelets confirmed
[2024-12-17] MEDS: HYDROCORTISONE SOD SUCC INJ 100 MG VIAL IV (18:17)
[2024-12-17 18:19] LABS: Carbon Dioxide 15.0 mMol/L (20.0-31.0)
[2024-12-17 18:48] LABS: INR 3.0 (0.9-1.3)
[2024-12-17] MEDS: Norepinephrine/NS 16mg/250ml 16 MG/250 ML BAG 126.422 MG IV ×3 (18:50→22:45)
[2024-12-17 18:51] LABS: Partial Thromboplastin Time > 139.0 Seconds (22.0-36.0)
[2024-12-17 18:53] LABS: Prothrombin Time 30.2 Seconds (9.0-12.2)
--- NOTE | 2024-12-17 19:41 | XR_ITS ---
Examination: Duplex scan of the lower extremity, unilateral left complete Date and time of exam: December 17, 2024 2040 hours INDICATIONS: Septic shock with left leg swelling today Technique: Duplex scan of the extremity veins using B-mode/grayscale imaging and Doppler spectral analysis and color flow Attention is directed to internal echogenicity, compression and augmentation involving these veins, color flow assessment, spectral analysis Findings: Major deep venous structures in the extremity demonstrate normal course and caliber. There is no evidence of deep vein thrombosis. Normal color flow and spectral analysis Impression: Negative for DVT..
[2024-12-17 20:39] LABS: Reflex Lactate? Y
[2024-12-17 21:07] LABS: Lactic Acid, 3 HR 13.9 mMol/L (0.4-2.0)
[2024-12-17 23:05] LABS: Albumin, Serum 1.8 gm/dL (3.4-4.8); Anion Gap 19 (7-16); BUN/Creatinine Ratio 9 Ratio (12-20); Blood Urea Nitrogen 12 mg/dL (9-23); Calcium 7.2 mg/dL (8.3-10.6); Calcium (Corrected) 9.0 mg/dL (8.5-10.1); Carbon Dioxide 17.2 mMol/L (20.0-31.0); Chloride 96 mMol/L (98-107); Creatinine (Component) 1.3 mg/dL (0.6-1.3); Estimated Creatinine Clearance 60.3 mL/min (>60); Glucose 78 mg/dL (74-106); Osmolality,Calculated 263 (275-295); Phosphorous 4.5 mg/dL (2.4-5.1); Potassium 3.8 mMol/L (3.4-5.1); Sodium 132 mMol/L (136-145); eGFR > 60 See Note
[2024-12-18] VITALS (86 sets, daily range): BP systolic 0–161; BP diastolic 0–77; PULSE 0–118; RESP 26–28; TEMP 35.4–36.3; O2SAT 53–100
[2024-12-18] MEDS: Sodium Bicarb 8.4% 50ml Vial* 88.23 MEQ in DEXTROSE 5%-WATER 500 ML 100 MEQ IV ×3 (00:35→13:12)
[2024-12-18] MEDS: Norepinephrine/NS 16mg/250ml 16 MG/250 ML BAG 126.422 MG IV ×5 (00:44→09:11)
[2024-12-18] MEDS: DEXTROSE 50%-WATER INJ 50 ML SYRINGE IVP ×2 (01:18→01:19)
[2024-12-18] MEDS: DEXTROSE 10%-WATER 1000 ML 1,000 ML 50 ML IV (02:45)
[2024-12-18] MEDS: VASOPRESSIN IN NS IVPB 20 UNIT/100 ML BAG 9 UNIT IV (04:42)
[2024-12-18 05:05] LABS: Basophils # (Auto) 0.0 Thou/mm3 (0.0-0.2); Basophils % (Auto) 0 % (0-2.5); Eosinophils # (Auto) 1.4 Thou/mm3 (0.0-0.5); Eosinophils % (Auto) 8 % (0-10); Immature Granulocytes Auto 0.32 Thou/mm3 (0.00-0.00); Lymphocytes # (Auto) 1.0 Thou/mm3 (1.0-4.8); Lymphocytes % (Auto) 6 % (10-50); Mean Corpuscular HGB Conc 34.0 g/dl (31.0-37.0); Mean Corpuscular Hemoglobin 35.3 pg (25.0-35.0); Mean Corpuscular Volume 104 fL (80-100); Monocytes # (Auto) 0.4 Thou/mm3 (0.0-0.8); Monocytes % (Auto) 2 % (0-12); Neutrophils # (Auto) 13.9 Thou/mm3 (1.8-7.7); Neutrophils % (Auto) 82 % (37-80); Nucleated Red Blood Cell # 0.20 Thou/mm3 (0.00-0.00); Nucleated Red Blood Cell % 1 /100 WBC (0); RDW Standard Deviation 76.1 fL (35.1-43.9); Red Blood Count 1.84 Miln/mm3 (4.50-5.90); White Blood Count 17.1 Thou/mm3 (3.8-10.6)
[2024-12-18 05:08] LABS: Platelet Count 66 Thou/mm3 (140-440)
[2024-12-18 05:09] LABS: Hematocrit 19.1 % (41.0-53.0); Hemoglobin 6.5 g/dL (13.5-16.0)
[2024-12-18 05:25] LABS: Base Excess -9 (-3-3); HCO3 17 mEq/L (20-26); Inspired Oxygen, FIO2 85 %; O2 Saturation 84 % (91-98); PCO2 39 mmHg (32.0-48.0); pH, Arterial 7.26 (7.35-7.45)
[2024-12-18 05:28] LABS: Partial Thromboplastin Time 99.2 Seconds (22.0-36.0)
[2024-12-18 05:29] LABS: PO2 50 mmHg (83-108)
[2024-12-18 05:30] LABS: Allen Test Not Performed; Puncture Site Arterial Line
[2024-12-18 05:32] LABS: Slide Review Platelets confirmed
[2024-12-18 05:34] LABS: Alanine Aminotransferase 376 U/L (10-49); Albumin, Serum 1.9 gm/dL (3.4-4.8); Albumin/Globulin Ratio 1.3 (1.2-2.2); Alkaline Phosphatase 31 U/L (46-116); Anion Gap 20 (7-16); Aspartate Amino Transferase 1083 U/L (0-34); BUN/Creatinine Ratio 8 Ratio (12-20); Bilirubin,Total 8.7 mg/dL (0.3-1.2); Blood Urea Nitrogen 8 mg/dL (9-23); Calcium 6.9 mg/dL (8.3-10.6); Calcium (Corrected) 8.6 mg/dL (8.5-10.1); Carbon Dioxide 16.7 mMol/L (20.0-31.0); Chloride 96 mMol/L (98-107); Creatinine (Component) 1.0 mg/dL (0.6-1.3); Estimated Creatinine Clearance 78.4 mL/min (>60); Globulin 1.5 gm/dL (2.3-3.5); Glucose 77 mg/dL (74-106); Magnesium 1.5 mg/dL (1.6-2.6); Osmolality,Calculated 263 (275-295); Phosphorous 3.9 mg/dL (2.4-5.1); Potassium 4.0 mMol/L (3.4-5.1); Sodium 133 mMol/L (136-145); Total Protein 3.4 gm/dL (5.7-8.2); eGFR > 60 See Note
[2024-12-18] MEDS: HYDROCORTISONE SOD SUCC INJ 100 MG VIAL 50 MG IV ×2 (06:15→12:52)
[2024-12-18] MEDS: PIPER/TAZO 3.375 GM PREMIX 3.375 GM/50 ML BAG IV (06:16)
[2024-12-18] MEDS: DEXTROSE 50%-WATER INJ 50 ML SYRINGE 100 ML IVP (07:40)
--- NOTE | 2024-12-18 08:13 | PD.NEPHPROG ---
Documentation for date of: 12/18/24 Subjective Subjective Interval history: Chart review done as patient is currently intubated Mr. Toribio is a 64-year-old gentleman with past medical history of decompensated liver cirrhosis, alcohol use disorder presented to the ED on 12/16/2024 with chief complaint of abdominal pain and left lower extremity swelling and pain- 2 days. He also reported to have rectal bleeding. He was extremely short of breath was placed on BiPAP and endorsed left lower extremity pain and swelling. He is under the care of liver team at [place] per chart. In the ED, patient was hypotensive with blood pressure 114/75, heart rate 84, respiratory rate 20, afebrile and saturating well on room air. Central line left IJ was initially tried however left IJ line went to right IJ therefore line was removed and profuse bleeding was seen. Patient had a emesis with blood therefore patient was intubated and started on mechanical ventilation. Nosebleeding was also seen. CBC showed white count 2.4, hemoglobin 9.8, MCV 116, platelet count 43. PT 31.4, fibrinogen 71, D-dimer 2980. VBG showed pH 7.12, PCO2 35, PO2 46. Chemistry panel is pending. Recent BUN was 18 and creatinine 1.5. LDH 203. Troponin I was negative. CRP 3.3. BNP 277. Procalcitonin 17.29. Subsequently was intubated for airway protection and started on pressors for significant hypotension. Patient currently on Levophed, vasopressin, bicarb drip, octreotide, IV Protonix and fluids. Chest x-ray showed atelectasis with early pneumonia right base. CT left lower extremity showed Diffuse subcutaneous fat edema, consider anasarca and cellulitis in the differential diagnosis.Air within the urinary bladder, possibly postprocedural or possibly due to cystitis. Emphysematous cystitis was ruled out. CT angio chest abdomen pelvis showed Acute compression fracture of the superior endplate of T11 without evidence of bone fragment retropulsion, about 10% decrease in vertebral height. Correlation with CT of the thoracolumbar spine is recommended.Dilated left atrium.Multifocal pneumonia.Small bilateral pleural effusions.Cirrhosis associated with ascites.Gallstones and gallbladder wall thickening, possibly due to chronic or possibly due to diuresis chronic liver disease.Possible sigmoiditis. Home medications:Ciprofloxacin 500 mg every 12, ferrous sulfate iron, folic acid 1 mg, Lasix 40 p.o. daily, loratadine 10 mg Q12, Protonix 40 mg, spironolactone 100 mg, thiamine 100 mg Patient is admitted to ICU for distributive shock related to distributive shock due to left lower extremity ecchymosis/bleeding, hypoxic respiratory failure, GI bleed, decompensated liver cirrhosis, anion gap metabolic acidosis and acute renal failure. Nephrology consultation was requested for need for CRRT. Patient currently seen in ICU. ICU team at bedside. ICU team placed a Vas-Cath. 12/18/2024 patient currently seen in ICU. On ventilator. Left leg seems to be completely ecchymotic and blistered. Significant edema noted. Patient this morning after 13 hours clotted off [place]. Significantly increased arterial pressures noted. Held dialysis. Lengthy conversation with the family members at bedside regarding multisystem organ failure and not able to offer dialysis due to nonfunctioning catheter -Probably related to his underlying DIC and clotting. Continues to be on pressors. White count 17.1, hemoglobin 6.3, platelets 66. INR 2.8. ABG showing pH of 7.26, PO250 on 100% FiO2, HCO3 17. Sodium 133, potassium 4.1, bicarbonate 12.5 despite 13 hours of CRRT. Creatinine 1.2. Lactic acid 18, calcium 8.6, phosphorus 4.8, magnesium 1.5, AST 1083, ALT 376, alk phos 31, total bilirubin 8.7, albumin 1.6. Review of Systems Review of Systems ROS Unobtainable: unobtainable due to medical condition and due to endotracheal tube Exam Vital Signs Temp Pulse Resp BP Pulse Ox O2 Del Method O2 Flow Rate 35.4 C L 0 L 26 H 133/45 H 71 L Mechanical Ventilation 2 12/18/24 12:00 12/18/24 15:05 12/18/24 09:14 12/18/24 14:13 12/18/24 14:46 12/18/24 12:00 12/16/24 20:37 FiO2 85 12/18/24 14:13 Narrative Exam GENERAL APPEARANCE: Patient currently seen in ICU. On multiple drips. Orotracheal intubation noted. NECK: Neck supple, no JVD or bruit CARDIOVASCULAR: Heart regular, no murmurs, tachycardia LUNGS/CHEST: Bilateral rhonchi ABDOMEN: Soft, distended. No masses. Normal bowel sounds. EXTREMITIES: Significant edema in the lower EXTR SKIN: Left leg Completely ecchymotic and severe discoloration noted. Blisters noted today MUSCULOSKELETAL:in bed NEUROLOGICAL : intubated, sedated Objective Labs 12/18/24 07:50 12/18/24 09:20 Labs: Laboratory Results - last 24 hr 12/16/24 12/17/24 12/17/24 20:48 15:34 17:30 WBC 6.9 D RBC 1.34 L* Hgb 5.2 L* D Hct 15.2 L* MCV 113 H MCH 38.8 H MCHC 34.2 RDW Std Deviation 63.0 H Plt Count 20 L* D Neut % (Auto) 69 Lymph % (Auto) 9 L [place] % (Auto) 2 Eos % (Auto) 18 H Baso % (Auto) 0 Neut # (Auto) 4.7 Lymph # (Auto) 0.6 L [place] # (Auto) 0.1 Eos # (Auto) 1.2 H Baso # (Auto) 0.0 Immature Gran # (Auto) 0.20 H Absolute Nucleated RBC 0.14 H Immature Gran % 3 H Nucleated RBC % 2 H PT 30.2 H* INR 3.0 H APTT > 139.0 H* D Puncture Site ABG pH ABG pCO2 ABG pO2 ABG HCO3 ABG O2 Saturation ABG Base Excess FiO2 Sodium 128 L Potassium 4.0 Chloride 94 L Carbon Dioxide 15.0 L Anion Gap 19 H BUN 20 Creatinine 1.9 H Estim Creat Clear Calc 41.2 L eGFR 39 L BUN/Creatinine Ratio 11 L Glucose 93 Calculated Osmolality 259 L Lactic Acid 13.4 H* Calcium 7.1 L Corrected Calcium 8.7 Phosphorus Magnesium Total Bilirubin 8.0 H D AST 281 H ALT 101 H Alkaline Phosphatase 31 L D Total Protein 3.7 L Albumin 2.0 L D Globulin 1.7 L Albumin/Globulin Ratio 1.2 Peritoneal Color Yellow Peritoneal Appearance Cloudy Peritoneal WBC 219 Peritoneal RBC 5000 Periton Polynucl WBCs 28 Periton Mononucl WBCs 72 Peritoneal Tot Protein < 2 Peritoneal Glucose 63 Peritoneal Amylase < 20 Misc Test Result Platelets confirmed Blood Type O Positive Antibody Screen NEGATIVE Crossmatch See Detail Blood Bank Wristband ID Yes Blood Bank Comment FFP Ready 12/17/24 12/17/24 12/18/24 20:58 22:34 04:40 WBC 17.1 H D RBC 1.84 L* Hgb 6.5 L* D Hct 19.1 L* MCV 104 H MCH 35.3 H MCHC 34.0 RDW Std Deviation 76.1 H Plt Count 66 L D Neut % (Auto) 82 H Lymph % (Auto) 6 L [place] % (Auto) 2 Eos % (Auto) 8 Baso % (Auto) 0 Neut # (Auto) 13.9 H Lymph # (Auto) 1.0 [place] # (Auto) 0.4 Eos # (Auto) 1.4 H Baso # (Auto) 0.0 Immature Gran # (Auto) 0.32 H Absolute Nucleated RBC 0.20 H Immature Gran % 2 H Nucleated RBC % 1 H PT INR APTT 99.2 H D Puncture Site ABG pH ABG pCO2 ABG pO2 ABG HCO3 ABG O2 Saturation ABG Base Excess FiO2 Sodium 132 L 133 L Potassium 3.8 4.0 Chloride 96 L 96 L Carbon Dioxide 17.2 L 16.7 L Anion Gap 19 H 20 H BUN 12 8 L Creatinine 1.3 D 1.0 Estim Creat Clear Calc 60.3 L 78.4 eGFR > 60 > 60 BUN/Creatinine Ratio 9 L 8 L Glucose 78 77 Calculated Osmolality 263 L 263 L Lactic Acid 13.9 H* Calcium 7.2 L 6.9 L Corrected Calcium 9.0 8.6 Phosphorus 4.5 3.9 Magnesium 1.5 L Total Bilirubin 8.7 H D AST 1083 H* ALT 376 H Alkaline Phosphatase 31 L Total Protein 3.4 L Albumin 1.8 L 1.9 L Globulin 1.5 L Albumin/Globulin Ratio 1.3 Peritoneal Color Peritoneal Appearance Peritoneal WBC Peritoneal RBC Periton Polynucl WBCs Periton Mononucl WBCs Peritoneal Tot Protein Peritoneal Glucose Peritoneal Amylase Misc Test Result Platelets confirmed Blood Type Antibody Screen Crossmatch Blood Bank Wristband ID Blood Bank Comment 12/18/24 12/18/24 12/18/24 05:11 07:50 09:20 WBC RBC Hgb 6.3 L* Hct 18.9 L* MCV MCH MCHC RDW Std Deviation Plt Count Neut % (Auto) Lymph % (Auto) [place] % (Auto) Eos % (Auto) Baso % (Auto) Neut # (Auto) Lymph # (Auto) [place] # (Auto) Eos # (Auto) Baso # (Auto) Immature Gran # (Auto) Absolute Nucleated RBC Immature Gran % Nucleated RBC % PT 28.7 H INR 2.8 H APTT Puncture Site Arterial Line ABG pH 7.26 L ABG pCO2 39 D ABG pO2 50 L* D ABG HCO3 17 L ABG O2 Saturation 84 L ABG Base Excess -9 L FiO2 85 Sodium 133 L Potassium 4.1 Chloride 97 L Carbon Dioxide 12.5 L* Anion Gap 24 H BUN 9 Creatinine 1.2 Estim Creat Clear Calc 68.4 eGFR > 60 BUN/Creatinine Ratio 8 L Glucose 123 H D Calculated Osmolality 266 L Lactic Acid 18.0 H* Calcium 6.7 L* Corrected Calcium 8.6 Phosphorus 4.8 Magnesium Total Bilirubin AST ALT Alkaline Phosphatase Total Protein Albumin 1.6 L Globulin Albumin/Globulin Ratio Peritoneal Color Peritoneal Appearance Peritoneal WBC Peritoneal RBC Periton Polynucl WBCs Periton Mononucl WBCs Peritoneal Tot Protein Peritoneal Glucose Peritoneal Amylase Misc Test Result Blood Type Antibody Screen Crossmatch Blood Bank Wristband ID Blood Bank Comment ABG Interpretation ABG results: 12/16/24 12/17/24 12/17/24 20:36 03:49 08:35 ABG pH 7.12 L* ABG pCO2 35 ABG pO2 99 ABG HCO3 12 L ABG O2 Saturation 97 ABG Base Excess -17 L VBG pH 7.27 L 7.12 L VBG pCO2 28 L 35 L VBG pO2 36 46 VBG Base Excess -13 L -17 L 12/17/24 12/18/24 13:37 05:11 ABG pH 7.20 L 7.26 L ABG pCO2 27 L 39 D ABG pO2 81 L 50 L* D ABG HCO3 10 L 17 L ABG O2 Saturation 96 84 L ABG Base Excess -16 L -9 L VBG pH VBG pCO2 VBG pO2 VBG Base Excess Assessment & Plan Assessment and plan (1) DIC (disseminated intravascular coagulation): Status: Acute (2) Upper gastrointestinal bleed: Status: Acute (3) Sepsis: Status: Acute (4) Pneumonia: Status: Acute (5) End-stage liver disease: Status: Acute (6) Acute renal failure (ARF): Status: Acute (7) Shock: Status: Acute (8) Thrombocytopenia: Status: Acute (9) Hypercoagulable state: Status: Acute (10) Cellulitis and abscess of left leg: Status: Acute (11) Hyponatremia: Status: Acute (12) Anemia: Status: Acute Additional Assessment & Plan Additional Plan: Patient with end-stage liver disease presented with shock, multisystem organ failure. Currently with acute renal failure and no urinary output. Life-threatening metabolic acidosis. Decided to proceed with CRRT. Prognosis remains guarded. On 11 drips. Due to high arterial pressures and unable to replace a dialysis catheter decided to hold off on dialysis. Goals of care discussed with family. They seem to be in agreement for comfort care. Plan of care discussed with ICU team. Critical care time spent today more than 45 minutes regarding plan of care and disease management. Medications and labs reviewed. Plan of care discussed with family at bedside. seems to be imminent. Thank you Dr. Mccoy for allowing me to participate in the care of Mr. Toribio PROCEDURES: Arterial Line Size (Gauge): 20
[2024-12-18 08:29] LABS: Hematocrit 18.9 % (41.0-53.0); Hemoglobin 6.3 g/dL (13.5-16.0)
[2024-12-18] MEDS: OCTREOTIDE ACET INJ 1,000 MCG in SODIUM CHLORIDE 0.9% 100 ML 5.1 MCG IV (08:51)
--- NOTE | 2024-12-18 08:54 | XR_ITS ---
Examination: AP chest single view Technique one AP portable semiupright chest single view Date and time: December 18, 2024, 0914 hrs., Comparison December 17, 2024 Indications: Worsening respiratory distress pneumonia today. Hypoxic respiratory failure. Findings: Mild enlargement cardiac contour Prominent vascular congestion. Significant and worsening bilateral perihilar pneumonia. Endotracheal tube tip 6.4 cm above miguel. Temporary right internal jugular dialysis catheter SVC satisfactory position. The orogastric tube is in the stomach, the tip is below the level of the film. Impression: Worsening bilateral pneumonia/ARDS. Mild heart failure
[2024-12-18] MEDS: Magnesium Sulfate 4 GM Ivpb 4 GM/50 ML BAG IV (09:54)
[2024-12-18 09:55] LABS: Lactate (Lactic Acid) 18.0 mMol/L (0.4-2.0)
[2024-12-18 10:13] LABS: INR 2.8 (0.9-1.3); Prothrombin Time 28.7 Seconds (9.0-12.2)
[2024-12-18 10:18] LABS: Albumin, Serum 1.6 gm/dL (3.4-4.8); Anion Gap 24 (7-16); BUN/Creatinine Ratio 8 Ratio (12-20); Blood Urea Nitrogen 9 mg/dL (9-23); Calcium (Corrected) 8.6 mg/dL (8.5-10.1); Chloride 97 mMol/L (98-107); Creatinine (Component) 1.2 mg/dL (0.6-1.3); Estimated Creatinine Clearance 68.4 mL/min (>60); Glucose 123 mg/dL (74-106); Osmolality,Calculated 266 (275-295); Phosphorous 4.8 mg/dL (2.4-5.1); Potassium 4.1 mMol/L (3.4-5.1); Sodium 133 mMol/L (136-145); eGFR > 60 See Note
[2024-12-18 10:23] LABS: Carbon Dioxide 12.5 mMol/L (20.0-31.0)
[2024-12-18 10:24] LABS: Calcium 6.7 mg/dL (8.3-10.6)
--- NOTE | 2024-12-18 10:39 | PC.SS ---
This is 64-year-old, single, male who presented to the ED for abdominal pain. Patient was intubated. SW completed assessment with patient's sister, Eli Sharp ([phone]) at bedside. Per Eli, patient rents a room from roommate. Patient lives alone. Prior to admission, patient was independent with ADLs, no DME. However, patient started to become swollen from his legs and requested assistance from Eli. Patient's PCP is any physician at [facility]. Patient's medical decision maker is Eli Sharp ([phone]). Supervisor [employer] to continue to meet with family and patient until able to complete discharge plan. Discharge plan: unknown at this time since patient is not medically clear. Next of kin: Eli Sharp ([phone]).
--- NOTE | 2024-12-18 10:48 | PD.RESEVENT ---
Documentation for date of: 12/18/24 Event Note Event Note: At approximately 10:45 am goals of care was discussed with the primary decision maker, sister Eli Sharp at the bedside. Due to patient's worsening multiorgan failure and poor response to treatment, including inability to continue with dialysis, it was decided to transition the patient to comfort care measures. They would like to wait for other family members to arrive today to say goodbye and will let the medical team know when they are ready to transition. Patient plan of care was discussed with the attending physician, Dr. Mccoy. Leisa Newman, PGY-3
[2024-12-18] MEDS: Norepinephrine/NS 16mg/250ml 16 MG/250 ML BAG 128.108 MG IV ×2 (10:49→12:41)
--- NOTE | 2024-12-18 11:03 | ESPR_ITS ---
<Statement entered by Colleen Mccoy MD - 12/19/24 08:10> TOTAL CC TIME: 45 MIN TOTAL TIME: 45MINUTES ON DIRECT MEDICAL CARE, MANAGEMENT - COORDINATION AND COUNSELING > 50% OF TOTAL TIME I saw and evaluated the patient. I reviewed the resident?s note and agree with findings and plan as documented in the resident?s note. Upon my evaluation, this patient had a high probability of imminent or life- threatening deterioration due to septic shock refractory lactic acidosis and worsening multisystem organ failure, which required my direct attention, intervention, and personal management. This time is exclusive of time spent on procedures, which are documented separately if performed. Patient is on very high doses of Levophed, remains on vasopressin, OBGYN NURSE circuit stopped working due to pressure alarms. The central line had already been changed out with a new hemodialysis catheter but continued problems with pressure alarms resulted in the inability to continue CRRT. Case was discussed with the customs opener verifier packer. Lactic acid continues to rise, the left leg looks increasingly worse with development of what increasing blebs, severe dusky discoloration with black and blue areas concerning for an underlying infectious disease cause. Surgery declined to perform bedside debridement due to the patient being too high risk with severe coagulopathy in the setting of liver failure. Cardiac output likely dropping as well as patient's blood pressure continues to go down and increasing hypoxia. Worsening ARDS is noted as well. Patient is on appropriate antibiotics. A family conference was held at bedside, the family appointed medical decision-maker is the patient's. Sister. The daughter lives in [place] and is essentially estranged from the father. The patient's sister and niece who are at bedside said that they already spoke with the daughter and she declined to visit her father in the hospital. The sister is the main family member who assists the patient with any normal day-to-day issues including providing meals at times or assisting in grocery shopping. The sister felt it was best to proceed with comfort care. They had a family discussion with other members of the family who agreed and the patient was placed on comfort care orders. Documentation for date of: 12/18/24 Subjective Subjective Interval history: Patient is a 64-year-old male with past medical history of decompensated liver cirrhosis, grade 3 esophageal varices s/p banding 10/16/2024, and alcohol use disorder who presented to the ED on 12/16/2024 with a chief complaint of abdominal pain and left lower extremity swelling and pain. He also reported to have rectal bleeding. He was extremely short of breath and was placed on BiPAP and endorsed left lower extremity pain and swelling. Patient's family was present at bedside at the time of history taking and reported that patient was having abdominal pain, shortness of breath, left lower extremity swelling and pain from last couple of days. Since his last admission 1 month ago for upper GI bleed and decompensated liver cirrhosis, patient was getting treatment for liver cirrhosis at [facility] and was also given medications. Patient had a complicated course in the ER which included a failed left IJ catheter placement leading to profuse bleeding, nosebleed, and emesis with blood and was eventually intubated with mechanical ventilation. In the ED, patient was hypotensive with blood pressure 114/75, heart rate 84, respiratory rate 20, afebrile and saturating well on room air. CBC showed white count 2.4, hemoglobin 9.8, MCV 116, platelet count 43. PT 31.4, fibrinogen 71, D-dimer 2980. VBG showed pH 7.12, PCO2 35, PO2 46. Recent BUN was 18 and creatinine 1.5. LDH 203. Troponin I was negative. CRP 3.3. BNP 277. Procalcitonin 17.29. Patient's blood pressure was consistently dropping along with blood sugars which initially were undetectable and also dropping. Patient was started on Levophed, vasopressin, bicarb, 4 ampoules of D50 were given, along with Zosyn, octreotide, Protonix, fluids. Chest x-ray showed atelectasis with early pneumonia right base. CT left lower extremity showed diffuse subcutaneous fat edema. Air within the urinary bladder, possibly postprocedural or possibly due to cystitis. CT angio chest/abdomen/pelvis showed acute compression fracture of the superior endplate of T11 without evidence of bone fragment retropulsion, about 10% decrease in vertebral height. Correlation with CT of the thoracolumbar spine is recommended. Dilated left atrium. Multifocal pneumonia. Small bilateral pleural effusions. Cirrhosis associated with ascites. Gallstones and gallbladder wall thickening, possibly due to chronic or possibly due to diuresis chronic liver disease. Possible sigmoiditis. Patient was admitted for distributive shock related sepsis due to left lower extremity cellulitis, pneumonia, GI bleed due to decompensated liver cirhosis, lactic acidosis, and metabolic acidoisis with elevated anion gap. Point of contact his sister who is decision-maker Eli at [phone] Daughter Chris is in [place] at [phone] 12/17/2024: Patient is seen and examined at bedside in the ICU. Admitted overnight. Sedated and on mechanical ventilator, AC/VC mode, tidal volume increased to 510, PEEP 5. Patient is admitted in ICUin view of shock, likely distributive in the setting of GNR bacteremia, sepsis, third space fluid loss from decompensated liver disease and suspected hypovolemic shock, secondary to blood loss from the underlying coagulopathy. Patient is currently on vasopressors, including Levophed, vasopressin and octreotide-able to maintain MAP above 65 mmHg. Patient was given 3 packs of cryoprecipitate, 1 pack of platelet, and FFP's in view of suspected underlying DIC. Arterial line was placed for continuous monitoring of blood gases. Patient had urine output of around 10 to 15 cc since this morning. Director Of Financial Planning, Dr. Ferrer was consulted in view of RAPHAEL which is likely due to combined hepatorenal syndrome, prerenal RAPHAEL from shock and ATN. Vas-Cath with triple-lumen is placed as patient needs CRRT in view of RAPHAEL, high anion gap metabolic acidosis, lactic acidosis. Bedside ultrasound of the heart and IVC is done, which showed EF of around 30 to 35%. Bedside ultrasound of the abdomen and 2 L of ascites fluid is drained which was later sent for ascitic fluid analysis to rule out SBP. Will repeat labs in the evening to monitor CBC, CMP and coagulation profile. Dr. Hawthorne, general surgery is consulted in view of left lower extremity ecchymosis extending up to the lower back and blisters on the lateral side of the upper thigh. Recommended no surgical intervention as of now and does not suspect any necrotizing fasciitis. Patient found to have poor outcome based on current clinical condition. Family, sister who is the decision maker is informed and updated about the patient's condition. After discussing about the risks and prognosis, sister wants to change the CODE STATUS to DNR/DNI in view of severe mortality and morbidity during the chest compressions. 12/18/2024: Patient seen at bedside, overnight CRRT had to be stopped 2 hours prior to completion due to circuit issues. Patient received a total of 3 PRBC, 2 cryoprecipitate, and 2 platelets overnight. Repeat H&H showed Hgb continues to be low at 6.3. Order placed for 2 more PRBC. He remains on high dose norepinephrine at 1.5, vasopressin 0.03. Sedation includes fentanyl 25 mcg and Versed 2 mg at lowest doses however patient not responsive to pain stimulus. This morning ABG showed pH 7.26, pCO2 39, pO2 50, HCO3 17. FiO2 increased to 95%, PEEP 10. CXR is showing worsening infiltrates suggestive of a pulmonary edema or development of ARDS. Lactic acid continues to uptrend to 18.0. On examination there are multiple significant blood-filled bullae extending on the lateral surface of the left lower extremity. Due to very poor prognosis, decision maker sister was brought to the bedside and the current options were presented. Patient's sister Eli decided to pursue comfort measures. Family will come in to see the patient first prior to initiating comfort measures. Exam Vital Signs Temp Pulse Resp BP Pulse Ox O2 Del Method O2 Flow Rate 95.7 F L 89 26 H 136/45 H 93 L Mechanical Ventilation 2 12/18/24 09:14 12/18/24 10:49 12/18/24 09:14 12/18/24 10:49 12/18/24 10:30 12/18/24 08:00 12/16/24 20:37 FiO2 85 12/18/24 10:12 Narrative Exam General: Intubated and mechanically ventilated on AC/VC mode HEENT: Nontraumatic. Bilateral scleral icterus, pupils 1 mm and non-reactive. Heart: Regular rate and rhythm, no murmurs. Lungs: Bronchial breath sounds bilaterally. Abdomen: Soft, mildly distended, positive bowel sounds. Neurologic: Intubated and mechanically ventilated. No response to pain stimulus despite minimal sedation. Extremities: Significant bilateral pitting pedal edema, severe bruising in the left lower extremity extending up to lower back. Skin: Severe ecchymoses and erythema throughout left lower extremity from hip all the way to toes. Objective Labs 12/18/24 07:50 12/18/24 09:20 Labs: Laboratory Results - last 24 hr 12/16/24 12/17/24 12/17/24 20:48 13:37 15:34 WBC RBC Hgb Hct MCV MCH MCHC RDW Std Deviation Plt Count Neut % (Auto) Lymph % (Auto) Crenshaw % (Auto) Eos % (Auto) Baso % (Auto) Neut # (Auto) Lymph # (Auto) Crenshaw # (Auto) Eos # (Auto) Baso # (Auto) Immature Gran # (Auto) Absolute Nucleated RBC Immature Gran % Nucleated RBC % PT INR APTT Puncture Site Arterial Line ABG pH 7.20 L ABG pCO2 27 L ABG pO2 81 L ABG HCO3 10 L ABG O2 Saturation 96 ABG Base Excess -16 L FiO2 40 Sodium Potassium Chloride Carbon Dioxide Anion Gap BUN Creatinine Estim Creat Clear Calc eGFR BUN/Creatinine Ratio Glucose Calculated Osmolality Lactic Acid Calcium Corrected Calcium Phosphorus Magnesium Total Bilirubin AST ALT Alkaline Phosphatase Total Protein Albumin Globulin Albumin/Globulin Ratio Peritoneal Color Yellow Peritoneal Appearance Cloudy Peritoneal WBC 219 Peritoneal RBC 5000 Periton Polynucl WBCs 28 Periton Mononucl WBCs 72 Peritoneal Tot Protein < 2 Peritoneal Glucose 63 Peritoneal Amylase < 20 Misc Test Result Blood Type O Positive Antibody Screen NEGATIVE Crossmatch See Detail Blood Bank Wristband ID Yes Blood Bank Comment FFP Ready 12/17/24 12/17/24 12/17/24 17:30 20:58 22:34 WBC 6.9 D RBC 1.34 L* Hgb 5.2 L* D Hct 15.2 L* MCV 113 H MCH 38.8 H MCHC 34.2 RDW Std Deviation 63.0 H Plt Count 20 L* D Neut % (Auto) 69 Lymph % (Auto) 9 L Crenshaw % (Auto) 2 Eos % (Auto) 18 H Baso % (Auto) 0 Neut # (Auto) 4.7 Lymph # (Auto) 0.6 L Crenshaw # (Auto) 0.1 Eos # (Auto) 1.2 H Baso # (Auto) 0.0 Immature Gran # (Auto) 0.20 H Absolute Nucleated RBC 0.14 H Immature Gran % 3 H Nucleated RBC % 2 H PT 30.2 H* INR 3.0 H APTT > 139.0 H* D Puncture Site ABG pH ABG pCO2 ABG pO2 ABG HCO3 ABG O2 Saturation ABG Base Excess FiO2 Sodium 128 L 132 L Potassium 4.0 3.8 Chloride 94 L 96 L Carbon Dioxide 15.0 L 17.2 L Anion Gap 19 H 19 H BUN 20 12 Creatinine 1.9 H 1.3 D Estim Creat Clear Calc 41.2 L 60.3 L eGFR 39 L > 60 BUN/Creatinine Ratio 11 L 9 L Glucose 93 78 Calculated Osmolality 259 L 263 L Lactic Acid 13.4 H* 13.9 H* Calcium 7.1 L 7.2 L Corrected Calcium 8.7 9.0 Phosphorus 4.5 Magnesium Total Bilirubin 8.0 H D AST 281 H ALT 101 H Alkaline Phosphatase 31 L D Total Protein 3.7 L Albumin 2.0 L D 1.8 L Globulin 1.7 L Albumin/Globulin Ratio 1.2 Peritoneal Color Peritoneal Appearance Peritoneal WBC Peritoneal RBC Periton Polynucl WBCs Periton Mononucl WBCs Peritoneal Tot Protein Peritoneal Glucose Peritoneal Amylase Misc Test Result Platelets confirmed Blood Type Antibody Screen Crossmatch Blood Bank Wristband ID Blood Bank Comment 12/18/24 12/18/24 12/18/24 04:40 05:11 07:50 WBC 17.1 H D RBC 1.84 L* Hgb 6.5 L* D 6.3 L* Hct 19.1 L* 18.9 L* MCV 104 H MCH 35.3 H MCHC 34.0 RDW Std Deviation 76.1 H Plt Count 66 L D Neut % (Auto) 82 H Lymph % (Auto) 6 L Crenshaw % (Auto) 2 Eos % (Auto) 8 Baso % (Auto) 0 Neut # (Auto) 13.9 H Lymph # (Auto) 1.0 Crenshaw # (Auto) 0.4 Eos # (Auto) 1.4 H Baso # (Auto) 0.0 Immature Gran # (Auto) 0.32 H Absolute Nucleated RBC 0.20 H Immature Gran % 2 H Nucleated RBC % 1 H PT INR APTT 99.2 H D Puncture Site Arterial Line ABG pH 7.26 L ABG pCO2 39 D ABG pO2 50 L* D ABG HCO3 17 L ABG O2 Saturation 84 L ABG Base Excess -9 L FiO2 85 Sodium 133 L Potassium 4.0 Chloride 96 L Carbon Dioxide 16.7 L Anion Gap 20 H BUN 8 L Creatinine 1.0 Estim Creat Clear Calc 78.4 eGFR > 60 BUN/Creatinine Ratio 8 L Glucose 77 Calculated Osmolality 263 L Lactic Acid Calcium 6.9 L Corrected Calcium 8.6 Phosphorus 3.9 Magnesium 1.5 L Total Bilirubin 8.7 H D AST 1083 H* ALT 376 H Alkaline Phosphatase 31 L Total Protein 3.4 L Albumin 1.9 L Globulin 1.5 L Albumin/Globulin Ratio 1.3 Peritoneal Color Peritoneal Appearance Peritoneal WBC Peritoneal RBC Periton Polynucl WBCs Periton Mononucl WBCs Peritoneal Tot Protein Peritoneal Glucose Peritoneal Amylase Misc Test Result Platelets confirmed Blood Type Antibody Screen Crossiatch Blood Bank [facility] Blood Bank Comment 12/18/24 09:20 WBC RBC Hgb Hct MCV MCH MCHC RDW Std Deviation Plt Count Neut % (Auto) Lymph % (Auto) Crenshaw % (Auto) Eos % (Auto) Baso % (Auto) Neut # (Auto) Lymph # (Auto) Crenshaw # (Auto) Eos # (Auto) Baso # (Auto) Immature Gran # (Auto) Absolute Nucleated RBC Immature Gran % Nucleated RBC % PT 28.7 H INR 2.8 H APTT Puncture Site ABG pH ABG pCO2 ABG pO2 ABG HCO3 ABG O2 Saturation ABG Base Excess FiO2 Sodium 133 L Potassium 4.1 Chloride 97 L Carbon Dioxide 12.5 L* Anion Gap 24 H BUN 9 Creatinine 1.2 Estim Creat Clear Calc 68.4 eGFR > 60 BUN/Creatinine Ratio 8 L Glucose 123 H D Calculated Osmolality 266 L Lactic Acid 18.0 H* Calcium 6.7 L* Corrected Calcium 8.6 Phosphorus 4.8 Magnesium Total Bilirubin AST ALT Alkaline Phosphatase Total Protein Albumin 1.6 L Globulin Albumin/Globulin Ratio Peritoneal Color Peritoneal Appearance Peritoneal WBC Peritoneal RBC Periton Polynucl WBCs Periton Mononucl WBCs Peritoneal Tot Protein Peritoneal Glucose Peritoneal Amylase Misc Test Result Blood Type Antibody Screen Crossiatch Blood Bank [facility] Blood Bank Comment ABG Interpretation ABG results: 12/16/24 12/17/24 12/17/24 20:36 03:49 08:35 ABG pH 7.12 L* ABG pCO2 35 ABG pO2 99 ABG HCO3 12 L ABG O2 Saturation 97 ABG Base Excess -17 L VBG pH 7.27 L 7.12 L VBG pCO2 28 L 35 L VBG pO2 36 46 VBG Base Excess -13 L -17 L 12/17/24 12/18/24 13:37 05:11 ABG pH 7.20 L 7.26 L ABG pCO2 27 L 39 D ABG pO2 81 L 50 L* D ABG HCO3 10 L 17 L ABG O2 Saturation 96 84 L ABG Base Excess -16 L -9 L VBG pH VBG pCO2 VBG pO2 VBG Base Excess Quality Measures Quality Measures none Assessment & Plan Assessment Current Active Medications: Generic Name Dose Route Start Last Admin Trade Name Freq PRN Reason Stop Dose Admin Al Hydrox/Mg Hydrox/Simethicone 30 ml 12/17/24 04:50 Mg Hyd/Al Hyd/Freddy (Maalox Reg) Susp 30 Ml Udc PO 01/16/25 04:49 Q4HR PRN Heartburn or Upset Stomach Dextrose 50 ml 12/17/24 19:20 12/17/24 21:02 Dextrose 50%-Water Inj 50 Ml Syringe IVP 01/16/25 19:19 50 ml X1 PRN Administration hypoglycemia Hydrocortisone Sodium Succinate 50 mg 12/18/24 04:55 12/18/24 06:15 Hydrocortisone Sod Succ Inj 100 Mg Vial IV 01/17/25 04:54 50 mg Q6HR LINDA Administration Propofol 1,000 mg in 100 mls @ 2.697 mls/hr 12/17/24 00:37 12/17/24 09:50 Diprivan Ivpb IV 01/16/25 00:36 0 mcg/kg/min .Q24H PRN 0 mls/hr PER PROTOCOL Titration Protocol 5 MCG/KG/MIN Fentanyl Citrate 2,500 mcg in 250 mls @ 2.5 mls/hr 12/17/24 02:33 12/18/24 06:00 Sublimaze Inj 2,500 Mcg/250 Ml Bag IV 12/22/24 02:32 25 mcg/hr .Q24H PRN 2.5 mls/hr PER PROTOCOL Titration Protocol 25 MCG/HR Vasopressin/Sodium Chloride 20 unit in 100 mls @ 9 mls/hr 12/17/24 05:05 12/18/24 04:42 Vasostrict/Ns Ivpb IV 01/16/25 05:04 0.03 unit/min .Q11H7M PRN 9 mls/hr PER PROTOCOL Administration Protocol 0.03 UNIT/MIN Norepinephrine Bitartrate 16 mg in 250 mls @ 4.214 mls/hr 12/17/24 09:12 12/18/24 10:49 Levophed In Ns 16mg/250ml IV 01/16/25 09:11 1.52 mcg/kg/min .Q24H PRN 128.108 mls/hr PER protocol Administration Protocol 0.05 MCG/KG/MIN Sodium Bicarbonate 88.23 meq/ 588.23 mls @ 100 mls/hr 12/17/24 11:00 12/18/24 07:08 Dextrose IV 01/16/25 10:59 100 mls/hr .Q5H53M LINDA Administration Piperacillin/Tazobactam/Dextrose 3.375 gm in 50 mls @ 12.5 mls/hr 12/17/24 14:00 12/18/24 06:16 Zosyn IV 12/24/24 13:59 12.5 mls/hr Q8HR LINDA Administration Protocol Octreotide Acetate 1,000 mcg/ 102 mls @ 5.1 mls/hr 12/17/24 12:02 12/18/24 08:51 Sodium Chloride IV 12/22/24 12:02 50 mcg/hr .Q20H LINDA 5.1 mls/hr Administration Protocol 50 MCG/HR Phenylephrine HCl 40 mg/ 100 mls @ 6.743 mls/hr 12/17/24 17:20 Sodium Chloride IV 01/16/25 17:19 .[id number] PRN Per Sepsis Protocol Protocol 0.5 MCG/KG/MIN Dextrose 1,000 mls @ 50 mls/hr 12/18/24 02:40 12/18/24 02:45 D10w 1000 Ml IV 12/18/24 22:39 50 mls/hr .Q20H LINDA Administration Magnesium Sulfate 4 gm in 50 mls @ 12.5 mls/hr 12/18/24 09:51 12/18/24 09:54 Magnesium Sulfate Ivpb IV 12/18/24 13:50 12.5 mls/hr X1 ONE Administration Magnesium Hydroxide 30 ml 12/17/24 04:50 Milk Of Magnesia Susp 30 Ml Udc PO 01/16/25 04:49 QDAY PRN CONSTIPATION Nitroglycerin 0.4 mg 12/17/24 04:50 Nitroglycerin 0.4 Mg Subl Btl #25 SL Q5MIN PRN CHEST PAIN Pantoprazole Sodium 40 mg 12/17/24 09:00 12/18/24 09:10 Pantoprazole Inj 40 Mg Vial IVP 01/16/25 08:59 40 mg BID LINDA Administration Plan Patient is a 64-year-old male with past medical history of decompensated liver cirrhosis, alcohol use disorder presented to the ED on 12/22/2024 with chief complaint of abdominal pain and left lower extremity swelling and pain. He was last evaluated have rectal bleeding. He was extremely short of breath and was placed on BiPAP and endorses left lower extremity pain and swelling. Admitted for distributive shock related to distributive shock due to left lower extremity cellulitis, pneumonia, GI bleed due to decompensated liver cirrhosis, lactic acidosis, metabolic acidoisis with elevated anion gap. Point of contact his sister who is decision-maker Eli at [phone] Daughter Taylor (in [place]) at [phone] #Goals of care discussion Goals of care discussion was performed with patient's family decision-maker Sister Jonas Benitez at [phone] who stated that patient needs resuscitation at any point he should be resuscitated. Patient's sister was informed that patient is critically sick and prognosis is poor and changed code status to DNR/DNI 12/18/2024: Family decided on comfort care. Pending family members to arrive and say their goodbyes. Will maintain current measures but not escalate care. Neurology #Acute encephalopathy DDx: Metabolic acidosis in the setting of sepsis, hyperammonemia, brain hemorrhage Dx: Patient was A&Ox3 and was place on BIPAP initially but due to episode of emesis was intubated due to concern for aspirating blood. Currently on fentanyl 25 mcg and Versed 2 mg Ammonia 104 Rx: -Discontinue sedation RRx: -Patient not responsive Cardiovascular #Shock #Disseminated intravascular coagulation #Elevated fibrinogen - in setting of decompensated liver cirrhosis and distributive shock DDx: Distributive and hypovolemic shock - GNR bacteremia, sources left leg, pneumonia, bleeding on presentation with hemetemesis, blood filled bullae, ecchymoses, DIC Dx: -Patient presented with abdominal pain, left lower extremity swelling. Patient had episode of emesis bright red blood nosebleed, rectal bleed and failed left IJ central line with profuse bleeding. -Blood pressure Dropping despite pressor support with MAP of 48, fibrinogen 71, D-dimer 2093 -CRP 3.3, procalcitonin 17.29., LDH 303 -VBG showed pH 7.12, pCO2 35, PO2 46 -Chest x-ray showed atelectasis with early pneumonia right base. Rx: -Continue Levophed and vasopressin -Consider adding phenylephrine if MAP remains below with maxed out Levophed -Continue IV antibiotics #Lactic acidosis DDx: Related to shock/hypoperfusion Dx: Lactic acid remained elevated currently at 11->13->18 Rx: -Follow-up with lactic acid 3 hourly -Continue Levophed and vasopressin -Treating underlying infection and shock with pressor support -Transfusing blood Respiratory #Acute hypoxic respiratory failure requiring #Intubated and mechanically ventilated #Community acquired pneumonia DDx: Community-acquired pneumonia, aspiration pneumonia, pulmonary edema, ARDS, PE, bleb rupture, pneumothorax Dx: VT settings: Vt 385 flow 57 RR 22 PEEP 5.0 fIO2 65 AC/VC Rx: -Continue intubation and mechanical ventilation -Follow-up with ABGs -Continue antibiotics GI and F/E/N #GI bleed related to decompensated liver cirrhosis in the setting of alcohol use disorder #Coagulopathy #Elevated liver enzymes and total bilirubin -Patient stopped drinking alcohol a month ago. Used to drink moderately. Works in [employer] and [employer] [facility] near [place]. Patient had a vomiting episode with blood before intubation. Dx: -CT left lower extremity showed Diffuse subcutaneous fat edema, consider anasarca and cellulitis in the differential diagnosis.Air within the urinary bladder, possibly postprocedural or possibly due to cystitis. Emphysematous cystitis was ruled out. -CT angio chest abdomen pelvis showed Acute compression fracture of the superior endplate of T11 without evidence of bone fragment retropulsion, about 10% decrease in vertebral height. Correlation with CT of the thoracolumbar spine is recommended.Dilated left atrium.Multifocal pneumonia.Small bilateral pleural effusions.Cirrhosis associated with ascites.Gallstones and gallbladder wall thickening, possibly due to chronic or possibly due to diuresis chronic liver disease.Possible sigmoiditis. -Per chart review colonoscopy showed hemorrhoids with moderate diverticulosis. EGD showed grade 3 esophageal varices which were banded on October 16, 2024. Rx: -Continue IV Protonix 40 mg IV twice daily -Continue octreotide -PRBC if hemoglobin drops below 7 -GI consulted #Decompensated liver cirrhosis #Anasarca #Moderate ascites #Coagulopathy #Hypoalbuminemia -History of alcohol use Dx: Albumin 1.1, BNP 277 -Last drink was month ago -MELD NA 35 , 60-65% Mortality -MDF score 96.4 Poor prognosis -Child Delgado class C Rx: -Continue IV albumin 90g -GI bleed, appreciate recs -Bleeding precautions -Paracentesis done - 2l of ascitic fluid is drained -Family is aware of patient's poor prognosis Renal #Anion gap metabolic acidosis and lactic acidosis non-compensated -Related to shock and lactic acid and RAPHAEL Dx: VBG showed pH 7.12, PCO 235, oxygen saturation 69 -Aguirre formula: Expected pCO2: 24-28 current pCO2 35 on VBG Rx: -Continue bicarb drip -2 ampoules of bicarb were given -Continue pressor support -CRRT partially completed overnight, unable to complete RRx: -Worsening, goals of care #RAPHAEL -Likely hypotension related to active bleeding, distributive shock, hepatorenal Dx: -BUN 18 and creatinine 1.5--> 2.2 Rx: -Albumin 1g/kg given - 90g -Avoid nephrotoxic agents -Renally dose medication -Strict I&O's -Correction of electrolytes as needed -Follow-up with renal panel -Nephro is consulted, CRRT unable to complete due to circuit issues #Hypervolemic hyponatremia and hypochloremia Dx: -Sodium 125, potassium 3.8, chloride 95, osmolality 253 -Patient has anasarca with 4+ pitting edema both lower extremities. -2 mg Bumex was given IV x 1, patient did not respond well to Bumex Rx: -Continue D10W Heme #Acute blood loss anemia #Macrocytic anemia #Leukopenia #Hypoalbuminemia #Thrombocytopenia #Coagulopathy #DIC Dx: -White count dropped to 2.4 -Hemoglobin 10-> 9.8, fibrinogen 71, D-dimer 2980, PT 31.4, platelets 43 Rx: -Albumin 1g/kg given - 90g -FFP and platelets transfused -Bleeding precautions -Neutropenic precautions Endo #Persistent hypoglycemia -Related to shock and DIC Blood sugars have been low Rx: -Started D10 at 50 cc/h -D50 as needed if blood glucose <55 MSK #Left lower extremity cellulitis and edema #Acute fracture of T11 vertebrae body per CT finding -Patient was noted to have left lower extremity swelling and pain Per sister, she did not notice any ecchymoses on left lower extremity at home -CT left lower extremity showed subcutaneous edema and swelling. No air was seen in the subcutaneous tissue however tele- radiologist reported that necrotizing fasciitis cannot be ruled out. Rx: -Continue IV Zosyn -Surgery, Dr. Hawthorne consulted, recommended to continue current management and no active intervention from surgical side ID #Septic shock #GNR bacteremia #DIC #Distribution of shock related to left lower extremity cellulitis, cystitis, UTI, pneumonia Diagnostic Test: Lactic acid, CT, CBC Rx: -Continue Zosyn -Peritoneal fluid analysis negative for SBP pending cultures DVT prophylaxis: None - SCDs cannot be placed due to left lower extremity cellulitis GI prophylaxis: Protonix 40 IV twice daily, octreotide Diet: NPO Merlos: Present Lines: 3 peripherals, right femoral arterial line, right femoral Vas-Cath, central right IJ line Drips: Levophed and vasopressin, octreotide Vent: Mechanically ventilated CODE STATUS: DNR Reason for hospitalization: Shock, DIC Patient plan of care was discussed with the attending physician, Dr. Mccoy. Leisa Newman, PGY-3
[2024-12-18 12:48] LABS: Reflex Lactate? Y
[2024-12-18] MEDS: fentaNYL CIT INJ 50 mCg/ML AMP 2ML IVP (14:02)
--- NOTE | 2024-12-18 14:59 | DES_ITS ---
<Statement entered by Colleen Mccoy MD - 12/19/24 08:11> I saw and evaluated the patient. I reviewed the resident?s note and agree with findings and plan as documented in the resident?s note. Documentation for date of: 12/18/24 Pronouncement Note Date and Time of Date of : 12/18/24 Time of : 14:54 PCOD Preliminary cause of : Cardiac arrest Contributing Factors (1) DIC (disseminated intravascular coagulation): (2) Upper gastrointestinal bleed: (3) Sepsis: (4) Pneumonia: (5) End-stage liver disease: (6) Cellulitis and abscess of left leg: Summary Additional details: Patient was seen and examined at the bedside, no pulses could be felt, no cardiac sounds were heard after 1 continuous minute of auscultation, no breath sounds heard, and pupils were fixed and dilated. Patient pronounced at 2:54 pm. Family was at bedside, condolences given. Attending physician, Dr. Mccoy notified. Leisa Newman, PGY-3 Additional Data Confirmation of : no pulse, no respirations, no heart sounds and pupils fixed and dilated Family: at bedside Attending/PCP notified?: Yes Attending physician: Colleen Mccoy MD Was code activated?: No Autopsy requested?: No cattle examiner notified?: No Organ bank notified?: Yes Advance directives: No
--- NOTE | 2024-12-18 15:09 | DES_ITS ---
<Statement entered by Colleen Mccoy MD - 12/19/24 08:16> TOTAL TIME: 45MINUTES ON DIRECT MEDICAL CARE, MANAGEMENT - COORDINATION AND COUNSELING > 50% OF TOTAL TIME I saw and evaluated the patient. I reviewed the resident?s note and agree with findings and plan as documented in the resident?s note. Documentation for date of: 12/18/24 Summary Date and Time Date of admission: 12/17/24 04:51 Date of : 12/18/24 Time of : 14:54 Summary Details: On 12/18, laboratory findings showed worsening metabolic acidosis and physical exam showed worsening left lower extremity ecchymosis and bullae formation. In addition, hemoglobin continued to drop despite multiple blood products given overnight. Given the patient's instability he was unsuitable for the OR. Nephrology team was not able to continue with dialysis as well. Given the extremely poor prognosis in the setting of DIC and end-stage liver cirrhosis, family was approached and patient's sister and decision-maker, Eli, opted for comfort care measures. Family members arrived to say their goodbyes and comfort care measures were initiated around 2 pm. Patient was given pain medications and extubated around 14:45. Asystole was noted on the business development at around 14:52. Family members surrounded patient and official time of was called at 14:54. Hospital Course: Patient is a 64-year-old male with past medical history of decompensated liver cirrhosis, grade 3 esophageal varices s/p banding 10/16/2024, and alcohol use disorder who presented to the ED on 12/16/2024 with a chief complaint of abdominal pain and left lower extremity swelling and pain. He also reported to have rectal bleeding. He was extremely short of breath and was placed on BiPAP and endorsed left lower extremity pain and swelling. Patient's family was present at bedside at the time of history taking and reported that patient was having abdominal pain, shortness of breath, left lower extremity swelling and pain from last couple of days. Since his last admission 1 month ago for upper GI bleed and decompensated liver cirrhosis, patient was getting treatment for liver cirrhosis at [facility] and was also given medications. Patient had a complicated course in the ER which included a failed left IJ catheter placement leading to profuse bleeding, nosebleed, and emesis with blood and was eventually intubated with mechanical ventilation. In the ED, patient was hypotensive with blood pressure 114/75, heart rate 84, respiratory rate 20, afebrile and saturating well on room air. CBC showed white count 2.4, hemoglobin 9.8, MCV 116, platelet count 43. PT 31.4, fibrinogen 71, D-dimer 2980. VBG showed pH 7.12, PCO2 35, PO2 46. Recent BUN was 18 and creatinine 1.5. LDH 203. Troponin I was negative. CRP 3.3. BNP 277. Procalcitonin 17.29. Patient's blood pressure was consistently dropping along with blood sugars which initially were undetectable and also dropping. Patient was started on Levophed, vasopressin, bicarb, 4 ampoules of D50 were given, along with Zosyn, octreotide, Protonix, fluids. Chest x-ray showed atelectasis with early pneumonia right base. CT left lower extremity showed diffuse subcutaneous fat edema. Air within the urinary bladder, possibly postprocedural or possibly due to cystitis. CT angio chest/abdomen/pelvis showed acute compression fracture of the superior endplate of T11 without evidence of bone fragment retropulsion, about 10% decrease in vertebral height. Correlation with CT of the thoracolumbar spine is recommended. Dilated left atrium. Multifocal pneumonia. Small bilateral pleural effusions. Cirrhosis associated with ascites. Gallstones and gallbladder wall thickening, possibly due to chronic or possibly due to diuresis chronic liver disease. Possible sigmoiditis. Patient was admitted for distributive shock related sepsis due to left lower e xtremity cellulitis, pneumonia, GI bleed due to decompensated liver cirhosis, lactic acidosis, and metabolic acidoisis with elevated anion gap. On 12/17, patient was found to have GNR bacteremia, and maintained Levophed and vasopressin requirement. Patient was given total 3 PRBCs, 1 FFP, 3 platelets, and 7 cryoprecipitate since admission. Arterial line, central right IJ line, and right femoral Vas-Cath were placed. Patient required CRRT for lactic acidosis. Bedside ultrasound of the heart and IVC was done, which showed EF of around 30 to 35%. Bedside ultrasound of the abdomen and 2L of ascitic fluid was drained which was negative for SBP. General surgery was consulted in view of left lower extremity ecchymosis extending up to the lower back and blisters on the lateral side of the upper thigh, for which surgery was not recommended. CODE STATUS was changed to DNR/DNI due to poor prognosis. On 12/18, patient continued to have worsening lactic acidosis with huge bullae along the lateral left leg and ankle. He did not respond to pain stimulus despite sedation turned off. Additionally, CRRT had to be stopped early and could not be continued per Nephrology. In the setting of worsening multiorgan failure, family decided to proceed with comfort measures and many family members came in to say their goodbyes. Additional Data Confirmation of as documented by pronouncing clinician: no pulse, no respirations, no heart sounds and pupils fixed and dilated Family: at bedside Attending/PCP notified?: Yes Attending physician: Colleen Mccoy MD Was code activated?: No Autopsy requested?: No methods examiner notified?: No Organ bank notified?: Yes Advance directives: No Hospice patient?: No Visit Providers Provider Primary care physician: Physician No Primary/Family Consults: 12/17/24 04:23 Consult to Gastroenterology Routine Comment: Consulting Provider: Amairani Spangler Consult to General Surgery Routine Comment: Consulting Provider: Teri Hawthorne 12/17/24 09:00 Consult to Nephrology Stat Comment: RAPHAEL Consulting Provider: Hira Ferrer Diagnosis Contributing Factors (1) DIC (disseminated intravascular coagulation): (2) Upper gastrointestinal bleed: (3) Sepsis: (4) Pneumonia: (5) End-stage liver disease: (6) Cellulitis and abscess of left leg: Discharge Plan Plan Patient Disposition: Patient condition on transfer: Benefits outweigh risks Prescriptions/Referrals Referrals: No Primary/Family,Physician [Primary Care Provider] - Patient/Caregiver Discharge Instructions Discharge Activity: activity as tolerated Print Language: Emirati
--- NOTE | 2024-12-18 16:36 | PC.NURSE ---
at 1056, DNWW called spoke with [facility]#[phone], at 1354, spoke with DNW, pt being released as donor, Sister julieth at bedside, per Julieth she would like to move forward with comfort care, orders received for comfort care, all gtts stopped at 1404, pt extubated at 1449, DNW notified of patient TOD at 1454, TOD declared by Dr. Newman at bedside Dr. Newman notified, at 1300, pt O2 SAT. at 60%, oxygen probe moved multiple times with same result, forehead monitor obtained with o2 sat at 72%, pt have no secretions through ET, Dr alvarenga notified, no orders at this time
--- NOTE | 2024-12-18 16:41 | PC.NURSE ---
at 0738, Dr. Ferrer notified of unable to resume Tablo despite multiple attempts, TABLO having high arterial pressure unable to restart, per Dr. Ferrer stop treatment at this time
--- NOTE | 2024-12-18 17:04 | PC.NURSE ---
at 1028, pt began having rhythm changes, MD Rodriguez notified not further questions at this time
--- NOTE | 2024-12-18 17:16 | PC.NURSE ---
pt TOD 1454, no belongings at bedside confimed, post mortem care completed, pt cleaned with clean sheets, gown and pads, all tubes and IVs removed except right fem. Central line and Right HD catheter retained in place with ID bracelet in place
== END 2024-12-18 17:20 | disposition expired | DRG 720 ==
LOC: SERX 12-17 04:10 → S2SX 12-17 17:46 → SERHOLD 12-21 13:30
PROVIDERS: Internal Medicine; Nurse Practitioner Family; Student in an Organized Health Care Education/Training Program; Admitting Provider Student in an Organized Health Care Education/Training Program; Emergency Provider Emergency Medicine; Visit Provider Internal Medicine Critical Care Medicine
DX: A41.50 Gram-negative sepsis, unspecified (principal); D62 Acute posthemorrhagic anemia; D65 Disseminated intravascular coagulation [defibrination syndrome]; D68.59 Other primary thrombophilia; L03.116 Cellulitis of left lower limb; D69.2 Other nonthrombocytopenic purpura; E87.1 Hypo-osmolality and hyponatremia; E87.20 Acidosis, unspecified; D53.9 Nutritional anemia, unspecified; E87.70 Fluid overload, unspecified; F10.10 Alcohol abuse, uncomplicated; G93.41 Metabolic encephalopathy; J18.9 Pneumonia, unspecified organism; J96.01 Acute respiratory failure with hypoxia; K70.31 Alcoholic cirrhosis of liver with ascites; K72.10 Chronic hepatic failure without coma; K76.7 Hepatorenal syndrome; K80.20 Calculus of gallbladder without cholecystitis without obstruction; N30.90 Cystitis, unspecified without hematuria; R57.1 Hypovolemic shock; L02.416 Cutaneous abscess of left lower limb; R65.21 Severe sepsis with septic shock; S22.089A Unspecified fracture of T11-T12 vertebra, initial encounter for closed fracture; Z51.5 Encounter for palliative care; M72.6 Necrotizing fasciitis; J98.11 Atelectasis; I85.10 Secondary esophageal varices without bleeding; K64.9 Unspecified hemorrhoids; K57.30 Diverticulosis of large intestine without perforation or abscess without bleeding; R04.0 Epistaxis; K92.2 Gastrointestinal hemorrhage, unspecified; Z66 Do not resuscitate; I46.8 Cardiac arrest due to other underlying condition
CPT/HCPCS: 36415; 36430; 36600; 71045; 71275; 73700; 74174; 80053; 80069; 81001; 82140; 82150; 82803; 82945; 83605; 83615; 83690; 83735; 83880; 84100; 84145; 84157; 84295; 84484; 85007; 85014; 85018; 85025; 85027; 85379; 85384; 85610; 85730; 86140; 86850; 86900; 86901; 86923; 86927; 86965; 87040; 87070; 87077; 87081; 87086; 87186; 87205; 87811; 89051; 93005; 93971; 94002; 94003; 94660; 94762; 96361; 96365; 96366; 96374; 96375; 96376; 99284; A4649; J0330; J1643; J1720; J2250; J2251; J2354; J2470; J2543; J2598; J2704; J3010; J3430; J3475; J3490; J7050; J7060; J7120; P9012; P9016; P9035; P9047; P9060; Q9967